=== PATIENT | female | born 1980 | race Caucasian/White ===

== ENCOUNTER 2019-01-26 18:55 | Emergency (ER) | payer SELFPAY ==
[2019-01-26 19:51] VITALS: BP 130/79; PULSE 88; RESP 18; TEMP 37; O2SAT 100; BMI 24.7
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
[2019-01-26 21:50] VITALS: BP 119/64; PULSE 76; RESP 18; O2SAT 99
== END 2019-01-26 22:06 | disposition home or self-care (01) ==
PROVIDERS: Emergency Provider Nurse Practitioner Family
DX: S09.90XA Unspecified injury of head, initial encounter (principal); S40.021A Contusion of right upper arm, initial encounter
CPT/HCPCS: 70450; 70486; 73060; 99282; 99285

== ENCOUNTER 2021-03-09 17:39 | Emergency (ER) | payer OTHER, MEDICAID, SELFPAY ==
[2021-03-09] VITALS (10 sets, daily range): BP systolic 109–131; BP diastolic 68–89; PULSE 80–94; RESP 14–30; TEMP 37; O2SAT 95–98; BMI 25.7
--- NOTE | 2021-03-09 18:19 | ED_ITS ---
HPI - General Adult General Chief complaint: Dizziness Stated complaint: lightheaded, muscle weakness Time Seen by Provider: 03/09/21 17:57 Source: patient Mode of arrival: Ambulatory Limitations: no limitations History of Present Illness HPI narrative: Patient is a 40-year-old female who is here for evaluation of m ultiple symptoms. She states that for the past 2 weeks she has had lightheadedness and fatigue in generally not feeling very well. Over the past couple days the symptoms seem to be worsening. She describes muscle cramping, foul-smelling urine. She also states she has had weight gain over the past couple months. No headaches. No chest pain. Has not tried anything for symptoms. She does not have a primary doctor so has not been evaluated up to this point. Related Data Previous Rx's Medication Instructions Recorded levothyroxine [Synthroid] 75 mcg PO DAILY #30 tab 03/09/21 nitrofurantoin monohyd/m-cryst 100 mg PO Q12H 5 Days #10 cap 03/09/21 [Macrobid] Allergies Allergy/AdvReac Type Severity Reaction Status Date / Time No Known Drug Allergies Allergy Verified 03/09/21 17:55 Review of Systems Constitutional Constitutional: Reports chills, Reports fatigue, Denies fever(s), Denies headache(s), Reports lethargy and Reports malaise Eyes Eyes: Denies change in vision ENT Ears, Nose, Mouth, and Throat: Denies vertigo, Denies dizziness, Denies headache(s) and Denies sore throat Cardiovascular Cardiovascular: Denies chest pain, Denies rapid heart rate, Denies irregular heart rhythm and Denies dyspnea Respiratory Respiratory: Denies cough and Denies dyspnea Gastrointestinal Gastrointestinal: Denies change in bowel habits Genitourinary Genitourinary: Reports urinary urgency Genitourinary: Reports urinary urgency Comments: Foul-smelling urine Musculoskeletal Musculoskeletal: Reports myalgias, Reports muscle cramps, Reports muscle weakness and Reports myalgias Integumentary/Breasts Skin/Breast: Denies rash Neurologic Neurologic: Denies confusion, Denies vertigo, Denies dizziness and Denies headache(s) Psychiatric Psychiatric: Denies confusion and Denies depression Endocrine Endocrine: Reports fatigue Hematologic/Lymphatic On Anticoagulants: No Allergic/Immunologic Allergic/Immunologic: Denies urticaria Patient History Medical History Healthy adult Social History Smoking Status: Current every day smoker Smoking Status: Current every day smoker alcohol intake frequency: 0-2 drinks per day Substance Use Type: marijuana Exam Initial Vital Signs Initial Vital Signs: Vital Signs Temperature 98.6 F 03/09/21 17:50 Pulse Rate 94 H 03/09/21 17:50 Respiratory Rate 14 03/09/21 17:50 Blood Pressure 131/76 03/09/21 17:50 Pulse Oximetry 98 03/09/21 17:50 Const General: cooperative, healthy appearing, comfortable and well developed Limitations: mental status not altered HENMT Head: normal to inspection and normocephalic Eyes General: appearance normal, both eyes and all related structures Resp Effort & Inspection: normal respiratory effort Auscultation: clear to auscultation bilaterally Cardio Rate: regular rate Rhythm: regular rhythm GI Inspection: non-distended Palpation: soft Skin Lesions: no lesions Rashes: no rashes Neuro General: patient alert, patient awake and patient oriented x3 Cognition: normal cognition Speech: speech normal Extrem General: normal to inspection and capillary refill normal Psych Appearance: grossly normal and well kempt Scores GCS [place] coma scale eye opening: Spontaneous Arianna coma scale verbal response: Orientated [place] coma scale motor response: Obey commands Arianna coma scale total score: 15 Course Orders Ordered: ED Orders 03/09/21 18:26 Complete Blood Count AUTO DIFF Stat Comprehensive Metabolic Panel Stat Ethanol (ETOH) Stat Free T3, Triiodothyronine Free Stat Free T4, Direct Thyroxine Stat Lipase Stat Magnesium Stat Phosphorous Stat Thyroid Stimulating Hormone Stat 03/09/21 20:12 Urine Culture Stat Urine Microscopic Stat Discontinued Medications Nitrofurantoin Macrocrystals (Nitrofurantoin Er 100 Mg Capsule) 100 mg PO NOW ONE Stop: 03/09/21 21:15 Last Admin: 03/09/21 21:20 Dose: 100 mg Documented by: MARIANNA Vital Signs Vital signs: Vital Signs - 8 hr 03/09/21 17:50 03/09/21 18:12 03/09/21 18:13 Temperature 98.6 F Pulse Rate 94 H 94 H 92 H Respiratory Rate 14 Blood Pressure 131/76 118/81 Pulse Oximetry 98 97 96 03/09/21 18:30 03/09/21 19:00 03/09/21 19:30 Temperature Pulse Rate 91 H 87 83 Respiratory Rate 14 17 16 Blood Pressure 109/69 109/73 112/68 Pulse Oximetry 97 95 97 03/09/21 19:58 03/09/21 20:00 03/09/21 20:30 Temperature Pulse Rate 88 90 84 Respiratory Rate 22 24 24 Blood Pressure 128/82 113/81 120/89 Pulse Oximetry 98 97 96 03/09/21 21:00 Temperature Pulse Rate 80 Respiratory Rate 30 H Blood Pressure 116/84 Pulse Oximetry 96 Medical Decision Making Lab Data Lab results reviewed: Yes I reviewed the patient's lab results. Result diagrams: 03/09/21 18:26 03/09/21 18:26 Labs: Lab Results 03/09/21 03/09/21 03/09/21 Range/Units 18:26 18:26 18:26 WBC 11.1 H (4.5-11.0) X10^3/uL RBC 4.47 (4.0-5.2) X10^6/uL Hgb 14.5 (12.0-16.0) g/dL Hct 41.9 (36-46) % MCV 93.9 (80-100) fL MCH 32.5 (26-34) PG MCHC 34.6 (30-36) % RDW 13.8 (11.6-14.8) % Plt Count 460 H (150-400) X10^3/uL Neut % (Auto) 66.7 (50-75) % Lymph % (Auto) 22.1 L (25-40) % [place] % (Auto) 7.8 (3-14) % Eos % (Auto) 2.6 (2-4) % Baso % (Auto) 0.8 (0-2) % Neut # (Auto) 7400 H (3041-7769) /uL Lymph # (Auto) 2400 (3497-2465) /uL [place] # (Auto) 900 (0-900) /uL Eos # (Auto) 300 (0-450) /uL Baso # (Auto) 100 (0-100) /uL Sodium 137 (137-145) mmol/L Potassium 3.8 (3.4-5.1) mmol/L Chloride 102 (98-107) mmol/L Carbon Dioxide 24 (22-32) mmol/L BUN 15 (7-17) mg/dL Creatinine 0.86 (0.52-1.04) mg/dL Estimated GFR > 60.0 (>60) mL/min BUN/Creatinine Ratio 17.4 (6-22) Glucose 94 (70-100) mg/dL Calcium 9.7 (8.4-10.2) mg/dL Phosphorus 4.0 (2.5-4.5) mg/dL Magnesium 2.2 (1.6-2.3) mg/dL Total Bilirubin 0.3 (0.2-1.3) mg/dL AST 41 H (14-36) IU/L ALT 37 H (<35) IU/L Alkaline Phosphatase 74 (38-126) U/L Total Protein 7.8 (6.3-8.2) g/dL Albumin 4.5 (3.5-5.0) g/dL Globulin 3.3 (1.7-4.1) g/dL Albumin/Globulin Ratio 1.4 (1.0-2.8) Lipase 74 (23-300) U/L TSH 59.8 H (0.47-4.68) uIU/mL Free T4 (0.78-2.19) ng/dL Free T3 (2.77-5.27) pg/mL Urine RBC (0-5/HPF) Urine WBC (0-5/HPF) Ur Squamous Epith Cells (0-5/HPF) Amorphous Sediment Urine Bacteria (None) Urine Mucus (Negative) Ur Culture Indicated? Ethyl Alcohol < 10 ( - 10) mg/dL 03/09/21 03/09/21 Range/Units 18:26 20:12 WBC (4.5-11.0) X10^3/uL RBC (4.0-5.2) X10^6/uL Hgb (12.0-16.0) g/dL Hct (36-46) % MCV (80-100) fL MCH (26-34) PG MCHC (30-36) % RDW (11.6-14.8) % Plt Count (150-400) X10^3/uL Neut % (Auto) (50-75) % Lymph % (Auto) (25-40) % [place] % (Auto) (3-14) % Eos % (Auto) (2-4) % Baso % (Auto) (0-2) % Neut # (Auto) (3714-2582) /uL Lymph # (Auto) (7662-9128) /uL [place]ow # (Auto) (0-900) /uL Eos # (Auto) (0-450) /uL Baso # (Auto) (0-100) /uL Sodium (137-145) mmol/L Potassium (3.4-5.1) mmol/L Chloride (98-107) mmol/L Carbon Dioxide (22-32) mmol/L BUN (7-17) mg/dL Creatinine (0.52-1.04) mg/dL Estimated GFR (>60) mL/min BUN/Creatinine Ratio (6-22) Glucose (70-100) mg/dL Calcium (8.4-10.2) mg/dL Phosphorus (2.5-4.5) mg/dL Magnesium (1.6-2.3) mg/dL Total Bilirubin (0.2-1.3) mg/dL AST (14-36) IU/L ALT (<35) IU/L Alkaline Phosphatase (38-126) U/L Total Protein (6.3-8.2) g/dL Albumin (3.5-5.0) g/dL Globulin (1.7-4.1) g/dL Albumin/Globulin Ratio (1.0-2.8) Lipase (23-300) U/L TSH (0.47-4.68) uIU/mL Free T4 0.26 L (0.78-2.19) ng/dL Free T3 3.15 (2.77-5.27) pg/mL Urine RBC None seen (0-5/HPF) Urine WBC 10-30/hpf H (0-5/HPF) Ur Squamous Epith Cells 1-5 /hpf (0-5/HPF) Amorphous Sediment 1+ Urine Bacteria Many (>30) H (None) Urine Mucus 1+ H (Negative) Ur Culture Indicated? Specimen cultured Ethyl Alcohol ( - 10) mg/dL Point of Care Testing Test Results Negative Urine Dip Bedside Urine Glucose Negative Bedside Urine Bilirubin - Negative Bedside Urine Ketone - Negative Urine Specific [place] 1.030 Bedside Urine Occult Blood - Negative Bedside Urine pH 6 Bedside Urine Protein - Negative Bedside Urine Urobilinogen - Negative Bedside Urine Nitrite + Positive Bedside Urine Leukocytes + 70 Esterase Point of care testing: Point of Care Testing Test Results Negative Urine Dip Bedside Urine Glucose Negative Bedside Urine Bilirubin - Negative Bedside Urine Ketone - Negative Urine Specific [place] 1.030 Bedside Urine Occult Blood - Negative Bedside Urine pH 6 Bedside Urine Protein - Negative Bedside Urine Urobilinogen - Negative Bedside Urine Nitrite + Positive Bedside Urine Leukocytes + 70 Esterase ECG Data Attestation: I personally reviewed and interpreted this ECG as follows: Prior ECG tracings: not available for review Interpretation: Sinus rhythm Normal axis Normal QRS Normal QTC Ventricular rate [address] T wave changes MDM Narrative Medical decision making narrative: Patient does have a nonfocal neurologic exam. Has a benign exam. Her urinalysis today is positive for nitrates and also has bacteria in her urine. Given her symptoms that she presents with this is consistent with a urinary tract infection. She was given 1st dose of antibiotics here in the ER and a prescription for the remainder course was electronically transmitted to the pharmacy of her choice. She does not have any signs of pyelonephritis. Has not been vomiting. Is afebrile. Is nontoxic. This could be the cause of many of her presenting symptoms today. Also during her workup it was found that her TSH was elevated. We then checked her free T4 and it was low. This is consistent with hypothyroidism. This also could explain many of her symptoms that she has been having over the past several weeks/months. She does not have a primary care doctor. I discussed with her starting on Synthroid and what this means. We did discuss that she needed to make contact with the primary doctor's this is a disease process that needs further surveillance. She was given a card with the phone number for the health resources coordinator. She expressed understanding of this. Patient is lean body mass is 100 lb. Her Synthroid was based on 1.6 Microg/kilogram using this weight. Will start her on 75 mcg. She was given return precautions with regard to the potentially having hyperthyroidism at this does. She expressed understanding and agreement with plan. Discharge Plan Departure Patient Disposition: Home Clinical Impression: Urinary tract infection, Hypothyroid Instructions: Hypothyroidism, DI for Urinary Tract Infection (UTI) Activity Restrictions/Additional Instructions: You were given your 1st dose of antibiotics here in the emergency department. A prescription for the remainder was electronically transmitted to [facility]. Your workup today also shows that you are hypothyroid. This means that your thyroid is not working as well as it should. We will start you on replacement medication. This was also sent to [facility]. It is important that you may contact with the primary doctor. You can call the number on the card that you were given. This numbers [phone]. This is the health resources coordinator. Return to the emergency department for any new or worsening symptoms Prescriptions: New nitrofurantoin monohyd/m-cryst [Macrobid] 100 mg capsule 100 mg PO Q12H 5 Days Qty: 10 RF: 0 levothyroxine [Synthroid] 75 mcg tablet 75 mcg PO DAILY Qty: 30 RF: 2
[2021-03-09 18:37] LABS: Add Manual Diff / Slide Review NO; Basophils Absolute Auto 100 /uL (0-100); Basophils Percent Auto 0.8 % (0-2); Eosinophils Absolute Auto 300 /uL (0-450); Eosinophils Percent Auto 2.6 % (2-4); Hematocrit 41.9 % (36-46); Hemoglobin 14.5 g/dL (12.0-16.0); Lymphocytes Absolute Auto 2400 /uL (1100-4500); Lymphocytes Percent Auto 22.1 % (25-40); Mean Corpuscular HGB Conc 34.6 % (30-36); Mean Corpuscular Hemoglobin 32.5 PG (26-34); Mean Corpuscular Volume 93.9 fL (80-100); Monocytes Absolute Auto 900 /uL (0-900); Monocytes Percent Auto 7.8 % (3-14); Neutrophils Absolute Auto 7400 /uL (1500-7000); Neutrophils Percent Auto 66.7 % (50-75); Platelet Count 460 X10^3/uL (150-400); Red Blood Cell Count 4.47 X10^6/uL (4.0-5.2); Red Cell Distribution Width 13.8 % (11.6-14.8); White Blood Cell Count 11.1 X10^3/uL (4.5-11.0)
[2021-03-09 18:49] LABS: Alanine Aminotransferase 37 IU/L (<35); Albumin 4.5 g/dL (3.5-5.0); Albumin Globulin Ratio 1.4 (1.0-2.8); Alkaline Phosphatase 74 U/L (38-126); Aspartate Aminotransferase 41 IU/L (14-36); BUN Creatinine Ratio 17.4 (6-22); Bilirubin Total 0.3 mg/dL (0.2-1.3); Blood Urea Nitrogen 15 mg/dL (7-17); Calcium 9.7 mg/dL (8.4-10.2); Carbon Dioxide 24 mmol/L (22-32); Chloride 102 mmol/L (98-107); Estimated Glomerular Filt Rate > 60.0 mL/min (>60); Ethanol (ETOH) < 10 mg/dL; Globulin 3.3 g/dL (1.7-4.1); Glucose 94 mg/dL (70-100); HEMOLYSIS < 15 (0-50); Lipase 74 U/L (23-300); Magnesium 2.2 mg/dL (1.6-2.3); Potassium 3.8 mmol/L (3.4-5.1); Sodium 137 mmol/L (137-145); Total Protein 7.8 g/dL (6.3-8.2)
--- NOTE | 2021-03-09 19:39 | PC.NURSE ---
Reports vision fuzzy x 3 days. Bilateral hand pain with griping/extending fingers. Also states my body feels heavy. I get tired really fast.
[2021-03-09 19:40] LABS: Thyroid Stimulating Hormone 59.8 uIU/mL (0.47-4.68)
[2021-03-09 20:14] LABS: RBC Urine None Seen (0-5/HPF)
[2021-03-09 20:26] LABS: Free T3, Triiodothyronine Free 3.15 pg/mL (2.77-5.27); Free T4, Direct Thyroxine 0.26 ng/dL (0.78-2.19)
[2021-03-09 20:37] LABS: Amorphous Sediment Urine 1+; Bacteria Urine Many (>30); Culture Indicated Urine Specimen Cultured; Mucus Urine 1+ (Negative); Squamous Epithelial Cell Urine 1-5 /HPF (0-5/HPF); WBC Urine 10-30/HPF (0-5/HPF)
[2021-03-09] MEDS: NITROFURANTOIN ER 100 MG CAPSULE PO (21:20)
== END 2021-03-09 21:23 | disposition home or self-care (01) ==
PROVIDERS: Emergency Provider Emergency Medicine
DX: N39.0 Urinary tract infection, site not specified (principal); E03.9 Hypothyroidism, unspecified
CPT/HCPCS: 36415; 80053; 80320; 81003; 81015; 81025; 83690; 83735; 84100; 84439; 84443; 84481; 85025; 87077; 87086; 87186; 93005; 93010; 99283; 99284

== ENCOUNTER 2023-08-17 06:32 | Emergency (ER) | payer OTHER, MEDICAID, SELFPAY ==
[2023-08-17] VITALS (45 sets, daily range): BP systolic 121–156; BP diastolic 81–93; PULSE 72–89; RESP 18; TEMP 36.6; O2SAT 94–99; BMI 25.7
--- NOTE | 2023-08-17 07:04 | DI.CT.S_ITS ---
PROCEDURE: CT SOFT TISSUE NECK W CON INDICATIONS: SIGNIFICANT L FACIAL SWELLING/DENTAL ABSCESS TECHNIQUE: After the administration of intravenous contrast, 3.0 mm axial sections acquired from the sella to the aortic arch. Additional oblique axial 3.0 mm sections acquired through the pharynx. 3 mm thick coronal and sagittal reformats were generated. For radiation dose reduction, the following was used: automated exposure control. COMPARISON: [facility], CT, SOFT TISSUE NECK W CONTRAST, 10/29/2008, 13:23. FINDINGS: Image quality: Excellent. Lymph nodes: Enlarged left cervical chain and left submandibular lymph nodes. Vessels: Visualized vasculature appears patent. Neck spaces: The oropharynx, nasopharynx, and pharynx demonstrate no mucosal lesions. The vocal cords, false vocal cords, epiglottis, vallecula, and tongue base all appear normal. Extramucosal spaces appear unremarkable. Glands: Left submandibular gland is enlarged, heterogeneously edematous, and mildly hyperemic. Prominent edema and enlargement of the caudal left medial pterygoid muscle. Mild edema and enlargement also involving the superficial left parotid gland. Mild fat stranding is seen deep to the parotid in the parapharyngeal space and superficially along the left muscles of mastication. Edema is effacing left piriform sinus. Mild leftward mass effect on the oropharynx. Miscellaneous: Visualized brain and orbits appear normal. Lung apices appear clear. Superficial soft tissues appear normal. Bones: Lucency surrounds several of the mandibular teeth and the posterior-most left maxillary tooth, though no visible bone abscess or adjacent fluid collection. No suspicious bony lesions. Moderate degenerative changes from C5 through C7, advanced for the patient's stated age. Visualized sinuses and mastoids appear unremarkable. IMPRESSION: 1. Prominent inflammation and edema involving the left medial pterygoid muscle and left submandibular gland. There is also reactive left neck and submandibular adenopathy. No stones are visible to suggest obstructive sialadenitis. No discrete fluid collection to indicate drainable abscess. Mild leftward displacement of oropharynx without visible peritonsillar abscess. Dictated by: Maria G Vasquez M.D. on 08/17/2023 at 8:31 Approved by: Maria G Vasquez M.D. on 08/17/2023 at 8:46
--- NOTE | 2023-08-17 07:28 | ED_ITS ---
HPI - Dental/Oral General Chief complaint: Dental/Oral Stated complaint: cant open mouth all the way left side swollen Time Seen by Provider: 08/17/23 06:54 Source: patient Mode of arrival: Ambulatory History of Present Illness HPI Narrative: 42-year-old female with history of hypothyroidism, hyperlipidemia, alcohol use disorder, tobacco abuse presents for severe L sided dental pain with facial swelling. Has had dental issues for quite some time, developed worsening pain and swelling 2 days ago. Today unable to fully open jaw due to pain. Able to swallow saliva and tolerate secretions. No recent antibiotic treatment for dental infection. Denies hx of head/neck surgery. Related Data Previous Rx's Medication Instructions Recorded levothyroxine 75 mcg tablet 75 mcg PO DAILY #30 tabs 03/09/21 (Synthroid) Allergies Allergy/AdvReac Type Severity Reaction Status Date / Time No Known Drug Allergies Allergy Verified 03/09/21 17:55 Review of Systems Review of Systems Narrative: CONSTITUTIONAL- Denies: fever, chills, fatigue HEENT- Reports: facial swelling, dental pain Denies: sore throat, nosebleed, vision changes RESPIRATORY- Denies: shortness of breath, cough, wheezing CARDIAC- Denies: chest pain, edema, orthopnea GI- Denies: abdominal pain, nausea, vomiting, constipation, diarrhea - Denies: frequency, dysuria, hematuria, flank pain MSK- Denies: extremity pain, extremity swelling, joint pain, joint swelling SKIN- Denies: rash, itching, burn, swelling NEUROLOGICAL- Denies: headache, numbness, weakness, dizziness PSYCHIATRIC- Denies: anxiety, depression, suicidal ideation, homicidal ideation Patient History Medical History Healthy adult Social History Smoking Status: Current every day smoker Smoking Status: Current every day smoker alcohol intake frequency: 0-2 drinks per day Substance Use Type: marijuana Exam Initial Vital Signs Initial Vital Signs: Vital Signs Pulse Oximetry 98 08/17/23 06:45 Const: Awake, alert, in pain, nontoxic appearing Eyes: PERRL, EOMI, conjunctiva normal ENT: Extensive poor dentition, mucous membranes moist, no pooling of secretions, no drooling, mild trismus, patient is able to open mouth 1 finger- width Cardiac: regular rate, regular rhythm RESP: unlabored, clear bilaterally, no wheezing GI: Atraumatic, soft, nontender, nondistended, no rebound, no guarding MSK: Atraumatic, full range of motion, pulses equal Skin: Warm, Dry, intact, no rashes Neuro: AO x3, CN II-XII grossly intact, moves all extremities Psych: affect normal, mood normal, not suicidal, not homicidal Course Course Course Narrative: Uncomfortable but nontoxic appearing patient with rapid evolving jaw swelling, presumably from dental infection. Mild trismus on exam, however patient's voice is normal, she is able to tolerate her secretions. We will order empiric Decadron and Unasyn, we will order laboratory work as well as CT imaging of the neck with contrast. Orders Ordered: Discontinued Medications Dexamethasone (Dexamethasone 10 Mg/Ml Vial) 10 mg IV NOW ONE Stop: 08/17/23 07:05 Last Admin: 08/17/23 07:36 Dose: 10 mg Documented By: KANDY Folic Acid (Folic Acid 1 Mg Tablet) 1 mg PO NOW ONE Stop: 08/17/23 07:06 Last Admin: 08/17/23 07:36 Dose: 1 mg Documented By: KANDY Ampicillin Sodium/Sulbactam (Sodium 3 gm/ Sodium Chloride) 100 mls @ 200 mls/hr IV NOW ONE Stop: 08/17/23 07:05 Last Infusion: 08/17/23 08:08 Dose: 0 mls/hr Documented By: Admin: 08/17/23 07:35 Dose: 200 mls/hr Documented By: KANDY Thiamine HCl 100 mg/ Sodium (Chloride) 101 mls @ 404 mls/hr IV NOW ONE Stop: 08/17/23 07:06 Last Infusion: 08/17/23 08:51 Dose: 0 mls/hr Documented By: Infusion: 08/17/23 08:35 Dose: 404 mls/hr Documented By: Infusion: 08/17/23 07:37 Dose: 0 mls/hr Documented By: Admin: 08/17/23 07:36 Dose: 404 mls/hr Documented By: KANDY Morphine Sulfate (Morphine 4 Mg/Ml Inj) 4 mg IV NOW ONE Stop: 08/17/23 07:06 Last Admin: 08/17/23 07:37 Dose: 4 mg Documented By: KANDY Morphine Sulfate (Morphine 4 Mg/Ml Inj) 4 mg IV NOW ONE Stop: 08/17/23 12:54 Last Admin: 08/17/23 13:03 Dose: 4 mg Documented By: SARAH Reevaluation(s) Reevaluation #1: Laboratory work is reviewed, significant for leukocytosis. Lactic acid 0.8. Liver enzymes mildly elevated, expected given that patient has history of alcohol use disorder. CT neck with contrast is concerning for edema and inflammation along the pterygoid muscle and submandibular regions. There is noted leftward deviation of the oropharynx, however no peritonsillar abscess. Patient is reassessed, pain is well controlled with IV medications, tolerating secretions, no evidence of airway compromise. Call placed to Dr. Burciaga of oral surgery Reevaluation #2: Call returned by Dr. Burciaga, who reviewed the images, and believes that there is a developing abscess. Unfortunately, however he is going to be out of town starting tomorrow, and he does not feel comfortable taking the patient to the operating room without any follow up. He recommended transfer to facility with ENT. Reevaluation #3: [facility] evaluated images, they believe that there is a developing abscess and accepted patient for transfer. At the time of transfer patient's airway was intact, she was tolerating secretions without any difficulty whatsoever, pain was well controlled. Consultations Consultation #1: Dr. Burciaga Consultation #2: ENT Vital Signs Vital signs: Vital Signs - 8 hr 08/17/23 10:45 08/17/23 11:00 08/17/23 11:00 Pulse Rate 79 78 Blood Pressure 143/93 H Pulse Oximetry 96 96 08/17/23 11:15 08/17/23 11:30 08/17/23 11:45 Pulse Rate 77 77 77 Blood Pressure Pulse Oximetry 94 95 95 08/17/23 12:00 08/17/23 12:00 08/17/23 12:15 Pulse Rate 77 78 Blood Pressure 141/90 H Pulse Oximetry 95 95 08/17/23 12:30 08/17/23 12:45 08/17/23 13:00 Pulse Rate 84 80 Blood Pressure 138/86 Pulse Oximetry 96 95 08/17/23 13:00 08/17/23 13:15 08/17/23 13:30 Pulse Rate 83 79 79 Blood Pressure Pulse Oximetry 96 94 94 08/17/23 14:07 08/17/23 14:07 08/17/23 14:15 Pulse Rate 81 80 Blood Pressure 121/87 Pulse Oximetry 96 96 08/17/23 14:30 08/17/23 14:45 08/17/23 15:00 Pulse Rate 81 80 Blood Pressure 143/81 H Pulse Oximetry 94 94 08/17/23 15:00 08/17/23 15:15 08/17/23 15:30 Pulse Rate 79 87 84 Blood Pressure Pulse Oximetry 94 95 95 08/17/23 15:45 08/17/23 16:00 08/17/23 16:05 Pulse Rate 87 89 Blood Pressure 136/87 Pulse Oximetry 95 96 08/17/23 16:05 08/17/23 16:15 08/17/23 16:30 Pulse Rate 83 79 85 Blood Pressure Pulse Oximetry 96 97 98 MDM - Dental/Oral Differential Diagnosis Differential diagnosis: Likely gingival abscess, dental caries and toothache Lab Data 08/17/23 07:26 08/17/23 07:26 Labs: Lab Results 08/17/23 08/17/23 08/17/23 Range/Units 07:26 07:26 07:26 WBC 16.9 H (4.5-11.0) X10^3/uL RBC 4.59 (4.0-5.2) X10^6/uL Hgb 13.9 (12.0-16.0) g/dL Hct 40.8 (36-46) % MCV 88.8 (80-100) fL MCH 30.2 (26-34) PG MCHC 34.0 (30-36) % RDW 13.2 (11.6-14.8) % Plt Count 406 H (150-400) X10^3/uL Neut % (Auto) 81.5 H (50-75) % Lymph % (Auto) 7.5 L (25-40) % Pender % (Auto) 9.9 (3-14) % Eos % (Auto) 0.7 L (2-4) % Baso % (Auto) 0.4 (0-2) % Neut # (Auto) 90065 H (4366-9864) /uL Lymph # (Auto) 1300 (6353-2024) /uL Pender # (Auto) 1700 H (0-900) /uL Eos # (Auto) 100 (0-450) /uL Baso # (Auto) 100 (0-100) /uL Sodium 136 L (137-145) mmol/L Potassium 3.8 (3.4-5.1) mmol/L Chloride 107 (98-107) mmol/L Carbon Dioxide 21 L (22-32) mmol/L BUN 11 (7-17) mg/dL Creatinine 0.61 (0.52-1.04) mg/dL Estimated GFR > 60 (>60) mL/min BUN/Creatinine Ratio 18.0 (6-22) Glucose 101 H (70-100) mg/dL Lactate 0.8 (0.7-2.1) mmol/L Calcium 9.1 (8.4-10.2) mg/dL Total Bilirubin 0.7 (0.2-1.3) mg/dL AST 45 H (14-36) IU/L ALT 49 H (<35) IU/L Alkaline Phosphatase 129 H (38-126) U/L Total Protein 7.5 (6.3-8.2) g/dL Albumin 4.1 (3.5-5.0) g/dL Globulin 3.4 (1.7-4.1) g/dL Albumin/Globulin Ratio 1.2 (1.0-2.8) Treatment and disposition Social Determinants of Health that impact treatment or disposition: Alcohol use disorder, tobacco abuse Critical Care Time Critical Care Time Critical Care Time: Yes Total Critical Care Time: 39 Attestation: Airway management, discussion with oral surgery, discussion with ENT, frequent reassessments, pain control Discharge Plan Departure Patient Disposition: [facility] Clinical Impression: Facial swelling, Dental caries, Continuous tobacco abuse, Alcohol use disorder Prescriptions: No Action levothyroxine [Synthroid] 75 mcg tablet 75 mcg PO DAILY Qty: 30 2RF
[2023-08-17 07:35] LABS: Add Manual Diff / Slide Review NO; Basophils Absolute Auto 100 /uL (0-100); Basophils Percent Auto 0.4 % (0-2); Eosinophils Absolute Auto 100 /uL (0-450); Eosinophils Percent Auto 0.7 % (2-4); Hematocrit 40.8 % (36-46); Hemoglobin 13.9 g/dL (12.0-16.0); Lymphocytes Absolute Auto 1300 /uL (1100-4500); Lymphocytes Percent Auto 7.5 % (25-40); Mean Corpuscular Hemoglobin 30.2 PG (26-34); Mean Corpuscular Volume 88.8 fL (80-100); Monocytes Absolute Auto 1700 /uL (0-900); Monocytes Percent Auto 9.9 % (3-14); Neutrophils Absolute Auto 13800 /uL (1500-7000); Neutrophils Percent Auto 81.5 % (50-75); Platelet Count 406 X10^3/uL (150-400); Red Blood Cell Count 4.59 X10^6/uL (4.0-5.2); Red Cell Distribution Width 13.2 % (11.6-14.8); White Blood Cell Count 16.9 X10^3/uL (4.5-11.0)
[2023-08-17] MEDS: AMPICILLIN/SULBACTAM 3 GM 3 GM in SODIUM CHLORIDE 0.9% 100 ML IV (07:35)
[2023-08-17] MEDS: DEXAMETHASONE 10 MG/ML VIAL IV (07:36)
[2023-08-17] MEDS: FOLIC ACID 1 MG TABLET PO (07:36)
[2023-08-17] MEDS: THIAMINE 100 MG in SODIUM CHLORIDE 0.9% 100 ML 404 MG IV (07:36)
[2023-08-17] MEDS: MORPHINE 4 MG/ML INJ IV ×2 (07:37→13:03)
[2023-08-17 07:48] LABS: Lactate (Lactic Acid) 0.8 mmol/L (0.7-2.1)
[2023-08-17 07:49] LABS: Alanine Aminotransferase 49 IU/L (<35); Albumin 4.1 g/dL (3.5-5.0); Albumin Globulin Ratio 1.2 (1.0-2.8); Alkaline Phosphatase 129 U/L (38-126); Aspartate Aminotransferase 45 IU/L (14-36); Bilirubin Total 0.7 mg/dL (0.2-1.3); Blood Urea Nitrogen 11 mg/dL (7-17); Calcium 9.1 mg/dL (8.4-10.2); Carbon Dioxide 21 mmol/L (22-32); Chloride 107 mmol/L (98-107); Estimated Glomerular Filt Rate > 60 mL/min (>60); Globulin 3.4 g/dL (1.7-4.1); Glucose 101 mg/dL (70-100); HEMOLYSIS < 15 (0-50); Potassium 3.8 mmol/L (3.4-5.1); Sodium 136 mmol/L (137-145); Total Protein 7.5 g/dL (6.3-8.2)
== END 2023-08-17 16:56 | disposition short-term general hospital (02) ==
PROVIDERS: Emergency Provider Emergency Medicine
DX: R22.0 Localized swelling, mass and lump, head (principal); K02.9 Dental caries, unspecified; Z72.0 Tobacco use; F10.90 Alcohol use, unspecified, uncomplicated
CPT/HCPCS: 70491; 80053; 83605; 85025; 96365; 96375; 96376; 99284; 99285; J0295; J1100; J2270

== ENCOUNTER 2024-12-02 17:07 | Inpatient (IN) | payer OTHER, SELFPAY ==
[2024-12-02] VITALS (14 sets, daily range): BP systolic 123–149; BP diastolic 79–108; PULSE 65–86; RESP 16–18; TEMP 36.7; O2SAT 98–100; BMI 24.2
--- NOTE | 2024-12-02 18:52 | ED.EXTPRO ---
HPI - Extremity Problem <Lita Lang Lou DO - Last Filed: 12/05/24 02:39> General Chief complaint: Extremity Problem,Nontraumatic Stated complaint: thinks blood clot, shakey, headache Time Seen by Provider: 12/02/24 18:52 Source: patient, RN notes reviewed and old records reviewed Mode of arrival: Family Vehicle Limitations: no limitations History of Present Illness HPI Narrative: 43-year-old female with a history of hypothyroidism and dyslipidemia patient comes in with complaint of what he describes as bilateral lower extremity discomfort and weakness but also describes all over her body pain. She describes headaches, pain in all of her extremities. States no fevers or chills. No chest pain or shortness of breath. She has had some nausea but no vomiting. She denies any issues such as diarrhea or constipation. No dysuria urgency or frequency. No incontinence. States she had increasing discomfort making it hard for her to walk. States sort of feels weak in her legs as well. States she has been falling. She states it has not episodes where she was passing out. Patient denies any trauma or injuries. States she has been taking Tylenol ibuprofen for discomfort. States home medications atorvastatin and levothyroxine. No known drug allergies. States she has had prior surgery for and ectopic removal. Does use tobacco daily. States drink some alcohol, uses marijuana denies other recreational drug. Related Data Home Medications Medication Instructions Recorded Confirmed atorvastatin 40 mg tablet 40 mg PO QPM 12/02/24 12/02/24 levothyroxine 150 mcg tablet 150 mcg PO DAILY 12/02/24 12/02/24 Allergies Allergy/AdvReac Type Severity Reaction Status Date / Time No Known Drug Allergies Allergy Verified 12/02/24 18:01 Review of Systems <Lita Lang Lou, DO - Last Filed: 12/05/24 02:39> Review of Systems ROS Unobtainable: All systems reviewed & are unremarkable except as noted in HPI and below Patient History <Lita Lou, DO - Last Filed: 12/05/24 02:39> Medical History (Updated 12/04/24 @ 13:00 by Cristiane Morrison MD) Hyperlipidemia Hypothyroid Alcohol abuse Methamphetamine abuse Healthy adult Surgical History (Updated 12/04/24 @ 12:44 by Cristiane Morrison MD) H/O section Family History (Updated 12/04/24 @ 13:00 by Cristiane Morrison MD) Father No problems noted. Mother No problems noted. Social History household members: significant other Smoking Status: Current every day smoker alcohol intake: current Smoking Status: Current every day smoker alcohol intake frequency: 0-2 drinks per day Exam <Lita Lou DO - Last Filed: 12/05/24 02:39> Narrative Exam Narrative: GEN: well nourished female, alert and oriented x 3, patient appears to be in mild distress. HEENT: Atraumatic, pupils are equal round reactive to light, extraocular movements are intact, nares are clear, there is no conjunctival pallor. Throat is clear without any exudates, erythema, tonsillar enlargement or uvular deviation, no facial droop HEART: Regular rate and rhythm without murmur, clicks, rubs. No carotid bruits, pulses are equal in upper and lower extremities. No Edema bilateral lower extremities no cyanosis, no pallor no erythema. LUNGS:Lungs clear to auscultation, no wheezes, rales, crackles, chest moves symmetrically ABD:bowel sounds normal, soft, non-tender, no guarding, rebound, rigidity, no masses noted, no hepatosplenomegaly :No CVA tenderness BACK: No cervical, thoracic or lumbar vertebral point tenderness. MSCL: Non-tender, no muscle atrophy, patient has range of motion of upper extremities. Patient has difficulty with dorsiflexion more ease with plantar flexion bilaterally. She was does seem to be a little bit weaker on the right compared to left although she was able to roll over on the and get on her side and on her back without any assistance. NEURO:CN 2-12 intact, sensation normal, reflexes 2/4 upper and lower extremities. SKIN: No rashes or skin changes appreciated. Initial Vital Signs Initial Vital Signs: Vital Signs Temperature 98.0 F 12/02/24 17:11 Pulse Rate 78 12/02/24 17:11 Respiratory Rate 16 12/02/24 17:11 Blood Pressure 123/79 12/02/24 17:11 Pulse Oximetry 99 12/02/24 17:11 Oxygen Delivery Method Room Air 12/02/24 17:11 <Ashley Suarez MD - Last Filed: 12/05/24 07:18> Initial Vital Signs Initial Vital Signs: Vital Signs Temperature 98.0 F 12/02/24 17:11 Pulse Rate 78 12/02/24 17:11 Respiratory Rate 16 12/02/24 17:11 Blood Pressure 123/79 12/02/24 17:11 Pulse Oximetry 99 12/02/24 17:11 Oxygen Delivery Method Room Air 12/02/24 17:11 <Eula Hendrickson DO - Last Filed: 12/04/24 18:41> Initial Vital Signs Initial Vital Signs: Vital Signs Temperature 98.0 F 12/02/24 17:11 Pulse Rate 78 12/02/24 17:11 Respiratory Rate 16 12/02/24 17:11 Blood Pressure 123/79 12/02/24 17:11 Pulse Oximetry 99 12/02/24 17:11 Oxygen Delivery Method Room Air 12/02/24 17:11 Procedures <Ashley Suarez MD - Last Filed: 12/05/24 07:18> Lumbar Puncture Time of procedure: 14:33 Patient Position: upright Skin Prep: Povidone-Iodine 1% Local Anesthetic: lidocaine 1% Amount of anesthesia used (mL): 3 Spinal Needle Gauge: 22G Interspace Used: L4-L5 Opening Pressure (cmH20): 60 (Pressure was high enough that it actually went out of the tube with the extension. Top of the tube measures 60 cm of water) Fluid Initially Obtained: clear Complications: none Course <Lita Lou DO - Last Filed: 12/05/24 02:39> Orders Ordered: Discontinued Medications Acetaminophen (Acetaminophen 325 Mg Tablet) 975 mg PO NOW ONE Stop: 12/02/24 19:05 Last Admin: 12/02/24 19:36 Dose: 975 mg Documented By: RADHA Acetaminophen (Acetaminophen 325 Mg Tablet) 975 mg PO Q8H PRN PRN Reason: Pain, Mild (1-3) Last Admin: 12/04/24 16:09 Dose: 975 mg Documented By: Admin: 12/04/24 08:50 Dose: 975 mg Documented By: Admin: 12/03/24 20:59 Dose: 975 mg Documented By: Admin: 12/03/24 02:24 Dose: 975 mg Documented By: RADHA Atorvastatin Calcium (Atorvastatin 20 Mg Tablet) 40 mg PO QPM [facility] Last Admin: 12/04/24 17:24 Dose: 40 mg Documented By: HANH Diazepam (Diazepam 5 Mg Tablet) 5 mg PO NOW ONE Stop: 12/03/24 09:10 Last Admin: 12/03/24 09:17 Dose: 5 mg Documented By: Enoxaparin Sodium (Enoxaparin 40 Mg/0.4 Ml Syringe) 40 mg SUBCUT DAILY [facility] Last Admin: 12/04/24 08:51 Dose: 40 mg Documented By: KATHY Enoxaparin Sodium (Enoxaparin 40 Mg/0.4 Ml Syringe) 40 mg SUBCUT DAILY [facility] Haloperidol (Haloperidol 5 Mg/Ml Vial) 5 mg IM NOW ONE Stop: 12/03/24 04:52 Last Admin: 12/03/24 04:54 Dose: 5 mg Documented By: RADHA Hydromorphone HCl (Hydromorphone 0.5 Mg Inj) 0.5 mg IV Q15MIN PRN PRN Reason: Pain, Last Admin: 12/03/24 22:28 Dose: 0.5 mg Documented By: Admin: 12/03/24 20:19 Dose: 0.5 mg Documented By: Admin: 12/03/24 12:56 Dose: 0.5 mg Documented By: Admin: 12/03/24 09:20 Dose: 0.5 mg Documented By: Sodium Chloride (Normal Saline 0.9%) 1,000 mls @ 1,000 mls/hr IV BOLUS ONE Stop: 12/02/24 20:03 Last Infusion: 12/02/24 20:54 Dose: Infused Documented By: Admin: 12/02/24 19:37 Dose: 1,000 mls/hr Documented By: RADHA Vancomycin HCl/Dextrose (Vancomycin) 1,500 mg in 300 mls @ 200 mls/hr IV NOW ONE Stop: 12/02/24 23:40 Last Infusion: 12/03/24 01:00 Dose: Infused Documented By: Admin: 12/02/24 23:19 Dose: 200 mls/hr Documented By: DESIREE Ceftriaxone Sodium 2,000 mg/ (Sodium Chloride) 100 mls @ 200 mls/hr IV NOW ONE Stop: 12/02/24 22:12 Last Infusion: 12/02/24 23:04 Dose: Infused Documented By: Admin: 12/02/24 22:31 Dose: 200 mls/hr Documented By: RADHA Sodium Chloride (Normal Saline 0.9%) 1,000 mls @ 150 mls/hr IV CONT ARTEM Last Infusion: 12/03/24 15:12 Dose: Infused Documented By: Admin: 12/03/24 05:20 Dose: 150 mls/hr Documented By: RADHA Acyclovir 800 mg/ Dextrose 250 mls @ 250 mls/hr IV Q8H [facility] Last Admin: 12/04/24 16:21 Dose: 250 mls/hr Documented By: Infusion: 12/04/24 10:25 Dose: Infused Documented By: Admin: 12/04/24 08:53 Dose: 250 mls/hr Documented By: Infusion: 12/04/24 03:18 Dose: Infused Documented By: Admin: 12/04/24 02:10 Dose: 250 mls/hr Documented By: Infusion: 12/03/24 18:18 Dose: Infused Documented By: Admin: 12/03/24 17:10 Dose: 250 mls/hr Documented By: Ceftriaxone Sodium 2,000 mg/ (Sodium Chloride) 100 mls @ 200 mls/hr IV BID ARTEM Last Infusion: 12/04/24 12:06 Dose: Infused Documented By: Admin: 12/04/24 10:37 Dose: 200 mls/hr Documented By: KATHY Vancomycin HCl (Vancomycin) 1,000 mg in 200 mls @ 200 mls/hr IV Q12H [facility] Last Admin: 12/04/24 06:53 Dose: Not Given Documented By: Vancomycin HCl 1,000 mg/ (Sodium Chloride) 250 mls @ 250 mls/hr IV NOW ONE Stop: 12/04/24 07:44 Last Infusion: 12/04/24 08:53 Dose: Infused Documented By: Admin: 12/04/24 07:29 Dose: 250 mls/hr Documented By: KATHY Vancomycin HCl (Vancomycin) 1,250 mg in 250 mls @ 250 mls/hr IV Q8H [facility] Sodium Chloride (Normal Saline 0.9%) 1,000 mls @ 70 mls/hr IV CONT ARTEM Last Admin: 12/04/24 12:55 Dose: 70 mls/hr Documented By: HANH Ketorolac Tromethamine (Ketorolac 30 Mg/Ml Vial) 15 mg IV NOW ONE Stop: 12/02/24 19:29 Last Admin: 12/02/24 19:41 Dose: 15 mg Documented By: RADHA Ketorolac Tromethamine (Ketorolac 30 Mg/Ml Vial) 15 mg IV Q6H PRN PRN Reason: Pain, Moderate (4-6) Stop: 12/08/24 01:39 Last Admin: 12/03/24 22:29 Dose: 15 mg Documented By: Admin: 12/03/24 01:41 Dose: 15 mg Documented By: RADHA Ketorolac Tromethamine (Ketorolac 30 Mg/Ml Vial) 15 mg IV NOW ONE Stop: 12/03/24 09:10 Last Admin: 12/03/24 09:17 Dose: 15 mg Documented By: Levothyroxine Sodium (Levothyroxine 75 Mcg Tablet) 150 mcg PO 0600 [facility] Lorazepam (Lorazepam 2 Mg/Ml Inj) 0.5 mg IV NOW ONE Stop: 12/02/24 20:26 Last Admin: 12/02/24 20:32 Dose: 0.5 mg Documented By: RADHA Lorazepam (Lorazepam 2 Mg/Ml Inj) 0.5 mg IV NOW ONE Stop: 12/03/24 06:14 Last Admin: 12/03/24 06:18 Dose: 0.5 mg Documented By: RADHA Morphine Sulfate (Morphine 4 Mg/Ml Inj) 4 mg IV NOW ONE Stop: 12/03/24 04:49 Last Admin: 12/03/24 04:57 Dose: Not Given Documented By: RADHA Morphine Sulfate (Morphine 4 Mg/Ml Inj) 4 mg IV NOW ONE Stop: 12/03/24 05:13 Last Admin: 12/03/24 05:15 Dose: 4 mg Documented By: RADHA Naloxone HCl (Naloxone 0.4 Mg/Ml Vial) 0.2 mg IV Q2MIN PRN PRN Reason: Opiate Reversal Naloxone HCl (Naloxone 0.4 Mg/Ml Vial) 0.2 mg IV Q2MIN PRN PRN Reason: Opiate Reversal Nitrofurantoin Macrocrystals (Nitrofurantoin Er 100 Mg Capsule) 100 mg PO BID [facility] Vancomycin HCl (Vancomycin Trough) 1 request MIS 1330 [facility] Stop: 12/05/24 13:31 Vancomycin HCl (Vancomycin Peak) 1 request MISC 1600 [facility] Stop: 12/05/24 16:01 Vital Signs Vital signs: Vital Signs - 8 hr 12/04/24 11:00 12/04/24 11:00 12/04/24 11:30 Pulse Rate 81 71 Respiratory Rate 17 18 Blood Pressure 111/61 Pulse Oximetry 97 98 Oxygen Delivery Method Room Air Room Air <Ashley Suarez MD - Last Filed: 12/05/24 07:18> Orders Ordered: Discontinued Medications Acetaminophen (Acetaminophen 325 Mg Tablet) 975 mg PO NOW ONE Stop: 12/02/24 19:05 Last Admin: 12/02/24 19:36 Dose: 975 mg Documented By: RADHA Acetaminophen (Acetaminophen 325 Mg Tablet) 975 mg PO Q8H PRN PRN Reason: Pain, Mild (1-3) Last Admin: 12/04/24 16:09 Dose: 975 mg Documented By: Admin: 12/04/24 08:50 Dose: 975 mg Documented By: Admin: 12/03/24 20:59 Dose: 975 mg Documented By: Admin: 12/03/24 02:24 Dose: 975 mg Documented By: RADHA Atorvastatin Calcium (Atorvastatin 20 Mg Tablet) 40 mg PO QPM [facility] Last Admin: 12/04/24 17:24 Dose: 40 mg Documented By: HANH Diazepam (Diazepam 5 Mg Tablet) 5 mg PO NOW ONE Stop: 12/03/24 09:10 Last Admin: 12/03/24 09:17 Dose: 5 mg Documented By: Enoxaparin Sodium (Enoxaparin 40 Mg/0.4 Ml Syringe) 40 mg SUBCUT DAILY [facility] Last Admin: 12/04/24 08:51 Dose: 40 mg Documented By: KATHY Enoxaparin Sodium (Enoxaparin 40 Mg/0.4 Ml Syringe) 40 mg SUBCUT DAILY [facility] Haloperidol (Haloperidol 5 Mg/Ml Vial) 5 mg IM NOW ONE Stop: 12/03/24 04:52 Last Admin: 12/03/24 04:54 Dose: 5 mg Documented By: RADHA Hydromorphone HCl (Hydromorphone 0.5 Mg Inj) 0.5 mg IV Q15MIN PRN PRN Reason: Pain, Last Admin: 12/03/24 22:28 Dose: 0.5 mg Documented By: Admin: 12/03/24 20:19 Dose: 0.5 mg Documented By: Admin: 12/03/24 12:56 Dose: 0.5 mg Documented By: Admin: 12/03/24 09:20 Dose: 0.5 mg Documented By: Sodium Chloride (Normal Saline 0.9%) 1,000 mls @ 1,000 mls/hr IV BOLUS ONE Stop: 12/02/24 20:03 Last Infusion: 12/02/24 20:54 Dose: Infused Documented By: Admin: 12/02/24 19:37 Dose: 1,000 mls/hr Documented By: RADHA Vancomycin HCl/Dextrose (Vancomycin) 1,500 mg in 300 mls @ 200 mls/hr IV NOW ONE Stop: 12/02/24 23:40 Last Infusion: 12/03/24 01:00 Dose: Infused Documented By: Admin: 12/02/24 23:19 Dose: 200 mls/hr Documented By: DESIREE Ceftriaxone Sodium 2,000 mg/ (Sodium Chloride) 100 mls @ 200 mls/hr IV NOW ONE Stop: 12/02/24 22:12 Last Infusion: 12/02/24 23:04 Dose: Infused Documented By: Admin: 12/02/24 22:31 Dose: 200 mls/hr Documented By: RADHA Sodium Chloride (Normal Saline 0.9%) 1,000 mls @ 150 mls/hr IV CONT ARTEM Last Infusion: 12/03/24 15:12 Dose: Infused Documented By: Admin: 12/03/24 05:20 Dose: 150 mls/hr Documented By: RADHA Acyclovir 800 mg/ Dextrose 250 mls @ 250 mls/hr IV Q8H [facility] Last Admin: 12/04/24 16:21 Dose: 250 mls/hr Documented By: Infusion: 12/04/24 10:25 Dose: Infused Documented By: Admin: 12/04/24 08:53 Dose: 250 mls/hr Documented By: Infusion: 12/04/24 03:18 Dose: Infused Documented By: Admin: 12/04/24 02:10 Dose: 250 mls/hr Documented By: Infusion: 12/03/24 18:18 Dose: Infused Documented By: Admin: 12/03/24 17:10 Dose: 250 mls/hr Documented By: Ceftriaxone Sodium 2,000 mg/ (Sodium Chloride) 100 mls @ 200 mls/hr IV BID ARTEM Last Infusion: 12/04/24 12:06 Dose: Infused Documented By: Admin: 12/04/24 10:37 Dose: 200 mls/hr Documented By: KATHY Vancomycin HCl (Vancomycin) 1,000 mg in 200 mls @ 200 mls/hr IV Q12H [facility] Last Admin: 12/04/24 06:53 Dose: Not Given Documented By: Vancomycin HCl 1,000 mg/ (Sodium Chloride) 250 mls @ 250 mls/hr IV NOW ONE Stop: 12/04/24 07:44 Last Infusion: 12/04/24 08:53 Dose: Infused Documented By: Admin: 12/04/24 07:29 Dose: 250 mls/hr Documented By: KATHY Vancomycin HCl (Vancomycin) 1,250 mg in 250 mls @ 250 mls/hr IV Q8H [facility] Sodium Chloride (Normal Saline 0.9%) 1,000 mls @ 70 mls/hr IV CONT [facility] Last Admin: 12/04/24 12:55 Dose: 70 mls/hr Documented By: HANH Ketorolac Tromethamine (Ketorolac 30 Mg/Ml Vial) 15 mg IV NOW ONE Stop: 12/02/24 19:29 Last Admin: 12/02/24 19:41 Dose: 15 mg Documented By: RADHA Ketorolac Tromethamine (Ketorolac 30 Mg/Ml Vial) 15 mg IV Q6H PRN PRN Reason: Pain, Moderate (4-6) Stop: 12/08/24 01:39 Last Admin: 12/03/24 22:29 Dose: 15 mg Documented By: Admin: 12/03/24 01:41 Dose: 15 mg Documented By: RADHA Ketorolac Tromethamine (Ketorolac 30 Mg/Ml Vial) 15 mg IV NOW ONE Stop: 12/03/24 09:10 Last Admin: 12/03/24 09:17 Dose: 15 mg Documented By: Levothyroxine Sodium (Levothyroxine 75 Mcg Tablet) 150 mcg PO 0600 [facility] Lorazepam (Lorazepam 2 Mg/Ml Inj) 0.5 mg IV NOW ONE Stop: 12/02/24 20:26 Last Admin: 12/02/24 20:32 Dose: 0.5 mg Documented By: RADHA Lorazepam (Lorazepam 2 Mg/Ml Inj) 0.5 mg IV NOW ONE Stop: 12/03/24 06:14 Last Admin: 12/03/24 06:18 Dose: 0.5 mg Documented By: RADHA Morphine Sulfate (Morphine 4 Mg/Ml Inj) 4 mg IV NOW ONE Stop: 12/03/24 04:49 Last Admin: 12/03/24 04:57 Dose: Not Given Documented By: RADHA Morphine Sulfate (Morphine 4 Mg/Ml Inj) 4 mg IV NOW ONE Stop: 12/03/24 05:13 Last Admin: 12/03/24 05:15 Dose: 4 mg Documented By: RADHA Naloxone HCl (Naloxone 0.4 Mg/Ml Vial) 0.2 mg IV Q2MIN PRN PRN Reason: Opiate Reversal Naloxone HCl (Naloxone 0.4 Mg/Ml Vial) 0.2 mg IV Q2MIN PRN PRN Reason: Opiate Reversal Nitrofurantoin Macrocrystals (Nitrofurantoin Er 100 Mg Capsule) 100 mg PO BID [facility] Vancomycin HCl (Vancomycin Trough) 1 request [facility] 1330 [facility] Stop: 12/05/24 13:31 Vancomycin HCl (Vancomycin Peak) 1 request [facility] 1600 [facility] Stop: 12/05/24 16:01 Vital Signs Vital signs: Vital Signs - 8 hr 12/04/24 11:00 12/04/24 11:00 12/04/24 11:30 Pulse Rate 81 71 Respiratory Rate 17 18 Blood Pressure 111/61 Pulse Oximetry 97 98 Oxygen Delivery Method Room Air Room Air <Eula Hendrickson, - Last Filed: 12/04/24 18:41> Orders Ordered: Discontinued Medications Acetaminophen (Acetaminophen 325 Mg Tablet) 975 mg PO NOW ONE Stop: 12/02/24 19:05 Last Admin: 12/02/24 19:36 Dose: 975 mg Documented By: RADHA Acetaminophen (Acetaminophen 325 Mg Tablet) 975 mg PO Q8H PRN PRN Reason: Pain, Mild (1-3) Last Admin: 12/04/24 16:09 Dose: 975 mg Documented By: Admin: 12/04/24 08:50 Dose: 975 mg Documented By: Admin: 12/03/24 20:59 Dose: 975 mg Documented By: Admin: 12/03/24 02:24 Dose: 975 mg Documented By: RADHA Atorvastatin Calcium (Atorvastatin 20 Mg Tablet) 40 mg PO QPM [facility] Last Admin: 12/04/24 17:24 Dose: 40 mg Documented By: HANH Diazepam (Diazepam 5 Mg Tablet) 5 mg PO NOW ONE Stop: 12/03/24 09:10 Last Admin: 12/03/24 09:17 Dose: 5 mg Documented By: Enoxaparin Sodium (Enoxaparin 40 Mg/0.4 Ml Syringe) 40 mg SUBCUT DAILY [facility] Last Admin: 12/04/24 08:51 Dose: 40 mg Documented By: KATHY Enoxaparin Sodium (Enoxaparin 40 Mg/0.4 Ml Syringe) 40 mg SUBCUT DAILY [facility] Haloperidol (Haloperidol 5 Mg/Ml Vial) 5 mg IM NOW ONE Stop: 12/03/24 04:52 Last Admin: 12/03/24 04:54 Dose: 5 mg Documented By: RADHA Hydromorphone HCl (Hydromorphone 0.5 Mg Inj) 0.5 mg IV Q15MIN PRN PRN Reason: Pain, Last Admin: 12/03/24 22:28 Dose: 0.5 mg Documented By: Admin: 12/03/24 20:19 Dose: 0.5 mg Documented By: Admin: 12/03/24 12:56 Dose: 0.5 mg Documented By: Admin: 12/03/24 09:20 Dose: 0.5 mg Documented By: Sodium Chloride (Normal Saline 0.9%) 1,000 mls @ 1,000 mls/hr IV BOLUS ONE Stop: 12/02/24 20:03 Last Infusion: 12/02/24 20:54 Dose: Infused Documented By: Admin: 12/02/24 19:37 Dose: 1,000 mls/hr Documented By: RADHA Vancomycin HCl/Dextrose (Vancomycin) 1,500 mg in 300 mls @ 200 mls/hr IV NOW ONE Stop: 12/02/24 23:40 Last Infusion: 12/03/24 01:00 Dose: Infused Documented By: Admin: 12/02/24 23:19 Dose: 200 mls/hr Documented By: DESIREE Ceftriaxone Sodium 2,000 mg/ (Sodium Chloride) 100 mls @ 200 mls/hr IV NOW ONE Stop: 12/02/24 22:12 Last Infusion: 12/02/24 23:04 Dose: Infused Documented By: Admin: 12/02/24 22:31 Dose: 200 mls/hr Documented By: RADHA Sodium Chloride (Normal Saline 0.9%) 1,000 mls @ 150 mls/hr IV CONT ARTEM Last Infusion: 12/03/24 15:12 Dose: Infused Documented By: Admin: 12/03/24 05:20 Dose: 150 mls/hr Documented By: RADHA Acyclovir 800 mg/ Dextrose 250 mls @ 250 mls/hr IV Q8H [facility] Last Admin: 12/04/24 16:21 Dose: 250 mls/hr Documented By: Infusion: 12/04/24 10:25 Dose: Infused Documented By: Admin: 12/04/24 08:53 Dose: 250 mls/hr Documented By: Infusion: 12/04/24 03:18 Dose: Infused Documented By: Admin: 12/04/24 02:10 Dose: 250 mls/hr Documented By: Infusion: 12/03/24 18:18 Dose: Infused Documented By: Admin: 12/03/24 17:10 Dose: 250 mls/hr Documented By: Ceftriaxone Sodium 2,000 mg/ (Sodium Chloride) 100 mls @ 200 mls/hr IV BID [facility] Last Infusion: 12/04/24 12:06 Dose: Infused Documented By: Admin: 12/04/24 10:37 Dose: 200 mls/hr Documented By: KATHY Vancomycin HCl (Vancomycin) 1,000 mg in 200 mls @ 200 mls/hr IV Q12H [facility] Last Admin: 12/04/24 06:53 Dose: Not Given Documented By: Vancomycin HCl 1,000 mg/ (Sodium Chloride) 250 mls @ 250 mls/hr IV NOW ONE Stop: 12/04/24 07:44 Last Infusion: 12/04/24 08:53 Dose: Infused Documented By: Admin: 12/04/24 07:29 Dose: 250 mls/hr Documented By: KATHY Vancomycin HCl (Vancomycin) 1,250 mg in 250 mls @ 250 mls/hr IV Q8H [facility] Sodium Chloride (Normal Saline 0.9%) 1,000 mls @ 70 mls/hr IV CONT [facility] Last Admin: 12/04/24 12:55 Dose: 70 mls/hr Documented By: HANH Ketorolac Tromethamine (Ketorolac 30 Mg/Ml Vial) 15 mg IV NOW ONE Stop: 12/02/24 19:29 Last Admin: 12/02/24 19:41 Dose: 15 mg Documented By: RADHA Ketorolac Tromethamine (Ketorolac 30 Mg/Ml Vial) 15 mg IV Q6H PRN PRN Reason: Pain, Moderate (4-6) Stop: 12/08/24 01:39 Last Admin: 12/03/24 22:29 Dose: 15 mg Documented By: Admin: 12/03/24 01:41 Dose: 15 mg Documented By: RADHA Ketorolac Tromethamine (Ketorolac 30 Mg/Ml Vial) 15 mg IV NOW ONE Stop: 12/03/24 09:10 Last Admin: 12/03/24 09:17 Dose: 15 mg Documented By: Levothyroxine Sodium (Levothyroxine 75 Mcg Tablet) 150 mcg PO 0600 [facility] Lorazepam (Lorazepam 2 Mg/Ml Inj) 0.5 mg IV NOW ONE Stop: 12/02/24 20:26 Last Admin: 12/02/24 20:32 Dose: 0.5 mg Documented By: RADHA Lorazepam (Lorazepam 2 Mg/Ml Inj) 0.5 mg IV NOW ONE Stop: 12/03/24 06:14 Last Admin: 12/03/24 06:18 Dose: 0.5 mg Documented By: RADHA Morphine Sulfate (Morphine 4 Mg/Ml Inj) 4 mg IV NOW ONE Stop: 12/03/24 04:49 Last Admin: 12/03/24 04:57 Dose: Not Given Documented By: RADHA Morphine Sulfate (Morphine 4 Mg/Ml Inj) 4 mg IV NOW ONE Stop: 12/03/24 05:13 Last Admin: 12/03/24 05:15 Dose: 4 mg Documented By: RADHA Naloxone HCl (Naloxone 0.4 Mg/Ml Vial) 0.2 mg IV Q2MIN PRN PRN Reason: Opiate Reversal Naloxone HCl (Naloxone 0.4 Mg/Ml Vial) 0.2 mg IV Q2MIN PRN PRN Reason: Opiate Reversal Nitrofurantoin Macrocrystals (Nitrofurantoin Er 100 Mg Capsule) 100 mg PO BID [facility] Vancomycin HCl (Vancomycin Trough) 1 request MISC 1330 [facility] Stop: 12/05/24 13:31 Vancomycin HCl (Vancomycin Peak) 1 request MISC 1600 [facility] Stop: 12/05/24 16:01 Vital Signs Vital signs: Vital Signs - 8 hr 12/04/24 11:00 12/04/24 11:00 12/04/24 11:30 Pulse Rate 81 71 Respiratory Rate 17 18 Blood Pressure 111/61 Pulse Oximetry 97 98 Oxygen Delivery Method Room Air Room Air MDM - Extremity (Nontraumatic) <Lita Lou, DO - Last Filed: 12/05/24 02:39> Lab Data 12/04/24 08:22 12/04/24 08:22 Labs: Lab Results 12/02/24 12/02/24 12/02/24 Range/Units 19:30 23:16 23:16 WBC 12.9 H (4.5-11.0) X10^3/uL RBC 4.96 (4.0-5.2) X10^6/uL Hgb 15.6 (12.0-16.0) g/dL Hct 45.4 (36-46) % MCV 91.5 (80-100) fL MCH 31.4 (26-34) PG MCHC 34.3 (30-36) % RDW 13.9 (11.6-14.8) % Plt Count 483 H (150-400) X10^3/uL Neut % (Auto) 89.6 H (50-75) % Lymph % (Auto) 6.1 L (25-40) % [place] % (Auto) 4.1 (3-14) % Eos % (Auto) 0.0 L (2-4) % Baso % (Auto) 0.2 (0-2) % Neut # (Auto) 67358 H (2070-5706) /uL Lymph # (Auto) 800 L (2597-2785) /uL [place] # (Auto) 500 (0-900) /uL Eos # (Auto) 0 (0-450) /uL Baso # (Auto) 0 (0-100) /uL ESR 21 H (0-20) MM/HR D-Dimer 477 (<500) ng/ml Sodium 136 L (137-145) mmol/L Potassium 4.0 (3.4-5.1) mmol/L Chloride 102 (98-107) mmol/L Carbon Dioxide 23 (22-32) mmol/L BUN 14 (7-17) mg/dL Creatinine 0.60 (0.52-1.04) mg/dL Estimated GFR > 60 (>60) mL/min BUN/Creatinine Ratio 23.3 H (6-22) Glucose 119 H (70-100) mg/dL Lactate 1.1 (0.7-2.1) mmol/L Calcium 9.8 (8.4-10.2) mg/dL Total Bilirubin 0.4 (0.2-1.3) mg/dL AST 50 H (14-36) IU/L ALT 59 H (<35) IU/L Alkaline Phosphatase 110 (38-126) U/L Total Creatine Kinase 74 (30-135) U/L C-Reactive Protein 15.9 H (<1.0) mg/dL Total Protein 8.8 H (6.3-8.2) g/dL Albumin 4.9 (3.5-5.0) g/dL Globulin 3.9 (1.7-4.1) g/dL Albumin/Globulin Ratio 1.3 (1.0-2.8) Lipase 39 (23-300) U/L Procalcitonin 0.551 H (<0.5) ng/mL TSH 3.30 (0.47-4.68) uIU/mL Serum , Qual Negative (Negative) Urine Color Yellow Urine Appearance Clear Urine pH 5.5 Normal (4.5-8.0) Ur Specific [place] 1.025 (1.000-1.035) Urine Protein Negative (Negative) Urine Glucose (UA) Negative (Negative) g/dL Urine Ketones 2+ H (NEGATIVE) Urine Occult Blood Negative (Negative) Urine Nitrate Positive H (Negative) Urine Bilirubin 1+ H (NEGATIVE) Ur Bilirubin Confirm Negative (Negative) Urine Urobilinogen 0.2 (0.2) E.U./dL Ur Leukocyte Esterase Negative (NEGATIVE) Urine RBC None seen (0-5/HPF) Urine WBC 0-1/hpf (0-5/HPF) Ur Squamous Epith Cells 0-1 /hpf (0-5/HPF) Urine Bacteria Many (>30) H (None) Ur Culture Indicated? Specimen cultured Vol Urine Centrifuged 10ml (spun) CSF Tube Number CSF Volume CSF Appearance (Clear) CSF Color (Colorless) CSF WBC (0-5) MONO/uL CSF RBC RBC /uL CSF Mononuclear WBCs % CSF Polynuclear WBCs % CSF Glucose (40-70) mg/dL CSF Total Protein (12-60) mg/dL CSF C.neoform/gat PCR (Not Detect) CSF CMV DNA (PCR) (Not Detect) CSF Enterovirus (PCR) (Not Detect) CSF E. coli (PCR) (Not Detect) CSF H. influenzae (PCR) (Not Detect) CSF HSV I (PCR) (Not Detect) CSF HSV II (PCR) (Not Detect) CSF HHV 6 (PCR) (Not Detect) CSF L.monocytogenes PCR (Not Detect) CSF N. meningitidis PCR (Not Detect) CSF Parechovirus (PCR) (Not Detect) CSF S. agalactiae (PCR) (Not Detect) CSF S. pneumoniae (PCR) (Not Detect) CSF VZV (PCR) (Not Detecte) U Opiates 300ng/mL cut Negative (Negative) Ur Oxycodone Screen Negative (Negative) Urine Methadone Screen Negative (Negative) Ur Barbiturates Screen Negative (Negative) U Tricyclic Antidepress Negative (Negative) Ur Phencyclidine Scrn Negative (Negative) Ur Amphetamines Screen Positive H (Negative) U Methamphetamines Scrn Positive H (Negative) Ur MDMA Scrn (Ecstasy) Positive H (Negative) U Benzodiazepines Scrn Negative (Negative) Urine Cocaine Screen Negative (Negative) U Marijuana (THC) Screen Positive H (Negative) Urine Specific [place] Normal (Normal) Ur Creatinine Normal (Normal) RPR w/Rflx to Titer (Non Reactive) SARS-CoV-2 (PCR) Negative (Negative) Influenza A (RT-PCR) Flu a negative (NEGATIVE) Influenza B (RT-PCR) Flu b negative (NEGATIVE) RSV (PCR) Negative (Negative) 12/03/24 12/03/24 12/03/24 Range/Units 05:17 14:25 14:28 WBC 10.0 (4.5-11.0) X10^3/uL RBC 4.55 (4.0-5.2) X10^6/uL Hgb 14.1 (12.0-16.0) g/dL Hct 41.4 (36-46) % MCV 90.9 (80-100) fL MCH 30.9 (26-34) PG MCHC 34.0 (30-36) % RDW 13.7 (11.6-14.8) % Plt Count 420 H (150-400) X10^3/uL Neut % (Auto) 84.0 H (50-75) % Lymph % (Auto) 9.0 L (25-40) % [place] % (Auto) 6.5 (3-14) % Eos % (Auto) 0.1 L (2-4) % Baso % (Auto) 0.4 (0-2) % Neut # (Auto) 8400 H (2449-7826) /uL Lymph # (Auto) 900 L (1584-6855) /uL [place] # (Auto) 700 (0-900) /uL Eos # (Auto) 0 (0-450) /uL Baso # (Auto) 0 (0-100) /uL ESR (0-20) MM/HR D-Dimer (<500) ng/ml Sodium 131 L (137-145) mmol/L Potassium 3.6 (3.4-5.1) mmol/L Chloride 104 (98-107) mmol/L Carbon Dioxide 18 L (22-32) mmol/L BUN 10 (7-17) mg/dL Creatinine 0.57 (0.52-1.04) mg/dL Estimated GFR > 60 (>60) mL/min BUN/Creatinine Ratio 17.5 (6-22) Glucose 132 H (70-100) mg/dL Lactate 1.0 (0.7-2.1) mmol/L Calcium 8.8 (8.4-10.2) mg/dL Total Bilirubin 0.4 (0.2-1.3) mg/dL AST 46 H (14-36) IU/L ALT 49 H (<35) IU/L Alkaline Phosphatase 114 (38-126) U/L Total Creatine Kinase (30-135) U/L C-Reactive Protein (<1.0) mg/dL Total Protein 7.2 (6.3-8.2) g/dL Albumin 4.1 (3.5-5.0) g/dL Globulin 3.1 (1.7-4.1) g/dL Albumin/Globulin Ratio 1.3 (1.0-2.8) Lipase (23-300) U/L Procalcitonin 0.434 (<0.5) ng/mL TSH (0.47-4.68) uIU/mL Serum , Qual (Negative) Urine Color Urine Appearance Urine pH (4.5-8.0) Ur Specific Ralston (1.000-1.035) Urine Protein (Negative) Urine Glucose (UA) (Negative) g/dL Urine Ketones (NEGATIVE) Urine Occult Blood (Negative) Urine Nitrate (Negative) Urine Bilirubin (NEGATIVE) Ur Bilirubin Confirm (Negative) Urine Urobilinogen (0.2) E.U./dL Ur Leukocyte Esterase (NEGATIVE) Urine RBC (0-5/HPF) Urine WBC (0-5/HPF) Ur Squamous Epith Cells (0-5/HPF) Urine Bacteria (None) Ur Culture Indicated? Vol Urine Centrifuged CSF Tube Number 3 CSF Volume 1.25 ml CSF Appearance Clear (Clear) CSF Color Colorless (Colorless) CSF WBC 245 H (0-5) MONO/uL CSF RBC 622 RBC /uL CSF Mononuclear WBCs 91 % CSF Polynuclear WBCs 9 % CSF Glucose 33 L (40-70) mg/dL CSF Total Protein 250 H* (12-60) mg/dL CSF C.neoform/gat PCR Not detected (Not Detect) CSF CMV DNA (PCR) Not detected (Not Detect) CSF Enterovirus (PCR) Not detected (Not Detect) CSF E. coli (PCR) Not detected (Not Detect) CSF H. influenzae (PCR) Not detected (Not Detect) CSF HSV I (PCR) Not detected (Not Detect) CSF HSV II (PCR) Detected (Not Detect) CSF HHV 6 (PCR) Not detected (Not Detect) CSF L.monocytogenes PCR Not detected (Not Detect) CSF N. meningitidis PCR Not detected (Not Detect) CSF Parechovirus (PCR) Not detected (Not Detect) CSF S. agalactiae (PCR) Not detected (Not Detect) CSF S. pneumoniae (PCR) Not detected (Not Detect) CSF VZV (PCR) Not detected (Not Detecte) U Opiates 300ng/mL cut (Negative) Ur Oxycodone Screen (Negative) Urine Methadone Screen (Negative) Ur Barbiturates Screen (Negative) U Tricyclic Antidepress (Negative) Ur Phencyclidine Scrn (Negative) Ur Amphetamines Screen (Negative) U Methamphetamines Scrn (Negative) Ur MDMA Scrn (Ecstasy) (Negative) U Benzodiazepines Scrn (Negative) Urine Cocaine Screen (Negative) U Marijuana (THC) Screen (Negative) Urine Specific Ral[place] (Normal) Ur Creatinine (Normal) RPR w/Rflx to Titer (Non Reactive) SARS-CoV-2 (PCR) (Negative) Influenza A (RT-PCR) (NEGATIVE) Influenza B (RT-PCR) (NEGATIVE) RSV (PCR) (Negative) 12/03/24 12/04/24 Range/Units 16:35 08:22 WBC 8.9 (4.5-11.0) X10^3/uL RBC 4.53 (4.0-5.2) X10^6/uL Hgb 14.0 (12.0-16.0) g/dL Hct 40.8 (36-46) % MCV 90.1 (80-100) fL MCH 30.9 (26-34) PG MCHC 34.3 (30-36) % RDW 13.7 (11.6-14.8) % Plt Count 450 H (150-400) X10^3/uL Neut % (Auto) 56.4 D (50-75) % Lymph % (Auto) 24.2 L (25-40) % [place] % (Auto) 18.5 H (3-14) % Eos % (Auto) 0.4 L (2-4) % Baso % (Auto) 0.5 (0-2) % Neut # (Auto) 5000 (2095-2434) /uL Lymph # (Auto) 2200 (8573-4239) /uL [place] # (Auto) 1700 H (0-900) /uL Eos # (Auto) 0 (0-450) /uL Baso # (Auto) 0 (0-100) /uL ESR (0-20) MM/HR D-Dimer (<500) ng/ml Sodium 132 L (137-145) mmol/L Potassium 3.7 (3.4-5.1) mmol/L Chloride 103 (98-107) mmol/L Carbon Dioxide 25 (22-32) mmol/L BUN 12 (7-17) mg/dL Creatinine 0.67 (0.52-1.04) mg/dL Estimated GFR > 60 (>60) mL/min BUN/Creatinine Ratio 17.9 (6-22) Glucose 104 H (70-100) mg/dL Lactate (0.7-2.1) mmol/L Calcium 8.5 (8.4-10.2) mg/dL Total Bilirubin 0.2 (0.2-1.3) mg/dL AST 38 H (14-36) IU/L ALT 36 H (<35) IU/L Alkaline Phosphatase 90 (38-126) U/L Total Creatine Kinase (30-135) U/L C-Reactive Protein (<1.0) mg/dL Total Protein 6.6 (6.3-8.2) g/dL Albumin 3.6 (3.5-5.0) g/dL Globulin 3.0 (1.7-4.1) g/dL Albumin/Globulin Ratio 1.2 (1.0-2.8) Lipase (23-300) U/L Procalcitonin (<0.5) ng/mL TSH (0.47-4.68) uIU/mL Serum , Qual (Negative) Urine Color Urine Appearance Urine pH (4.5-8.0) Ur Specific R[place] (1.000-1.035) Urine Protein (Negative) Urine Glucose (UA) (Negative) g/dL Urine Ketones (NEGATIVE) Urine Occult Blood (Negative) Urine Nitrate (Negative) Urine Bilirubin (NEGATIVE) Ur Bilirubin Confirm (Negative) Urine Urobilinogen (0.2) E.U./dL Ur Leukocyte Esterase (NEGATIVE) Urine RBC (0-5/HPF) Urine WBC (0-5/HPF) Ur Squamous Epith Cells (0-5/HPF) Urine Bacteria (None) Ur Culture Indicated? Vol Urine Centrifuged CSF Tube Number CSF Volume CSF Appearance (Clear) CSF Color (Colorless) CSF WBC (0-5) MONO/uL CSF RBC RBC /uL CSF Mononuclear WBCs % CSF Polynuclear WBCs % CSF Glucose (40-70) mg/dL CSF Total Protein (12-60) mg/dL CSF C.neoform/gat PCR (Not Detect) CSF CMV DNA (PCR) (Not Detect) CSF Enterovirus (PCR) (Not Detect) CSF E. coli (PCR) (Not Detect) CSF H. influenzae (PCR) (Not Detect) CSF HSV I (PCR) (Not Detect) CSF HSV II (PCR) (Not Detect) CSF HHV 6 (PCR) (Not Detect) CSF L.monocytogenes PCR (Not Detect) CSF N. meningitidis PCR (Not Detect) CSF Parechovirus (PCR) (Not Detect) CSF S. agalactiae (PCR) (Not Detect) CSF S. pneumoniae (PCR) (Not Detect) CSF VZV (PCR) (Not Detecte) U Opiates 300ng/mL cut (Negative) Ur Oxycodone Screen (Negative) Urine Methadone Screen (Negative) Ur Barbiturates Screen (Negative) U Tricyclic Antidepress (Negative) Ur Phencyclidine Scrn (Negative) Ur Amphetamines Screen (Negative) U Methamphetamines Scrn (Negative) Ur MDMA Scrn (Ecstasy) (Negative) U Benzodiazepines Scrn (Negative) Urine Cocaine Screen (Negative) U Marijuana (THC) Screen (Negative) Urine Specific Ral[place] (Normal) Ur Creatinine (Normal) RPR w/Rflx to Titer Non reactive (Non Reactive) SARS-CoV-2 (PCR) (Negative) Influenza A (RT-PCR) (NEGATIVE) Influenza B (RT-PCR) (NEGATIVE) RSV (PCR) (Negative) Point of Care Testing Glucose POC [address]: Radiologist's Impression: Jessica Ortez??43??F??1980 ? Allergy/Adv: No Known Drug Allergies Close Lumbar Spine CT (Signed) Earnest Roberson - 12/02/[address] (Signed) Earnest Roberson - 12/02/[address] (Signed) Maria G Vasquez - 08/17/23 Humerus X-Ray (Signed) Ze Awad - 01/26/[address] (Signed) [place] - 01/26/[address] (Signed) Ze Awad - 01/26/19 [place] [id number] CT Scan Report Signed Patient: Jessica Ortez MR#: [id number] : 1980 Acct:[id number] Age/Sex: 43 / F Date of Service: 12/02/24 Loc: ED Accession Number: [id number] Procedure: CT lumbar spine w con Ordering Provider: Lita Lou D.O. PROCEDURE: CT LUMBAR SPINE W CON INDICATIONS: legs hurt, weakness TECHNIQUE: After the administration of intravenous Isovue contrast, 3 mm thick sections acquired through the levels of interest. Sagittal and coronal reformats were then constructed. For radiation dose reduction, the following was used: automated exposure control. COMPARISON: None. FINDINGS: Image quality: Diagnostic Bones: Vertebral body heights are well maintained. No high-grade degenerative changes. No traumatic subluxation. No displaced fracture. Bpls-[id number]-[id number] L4-L5 facet arthropathy, greater on the right. Mild facet arthropathy seen elsewhere the lumbar spine. Partially sacralized S1 Soft tissues: No abdominal aortic aneurysm. Mild nonspecific distal esophageal wall thickening. No paravertebral fluid collections. On limited CT assessment, suspected disc protrusions and bulges are seen at L3-L4 and L4-L5 resulting in at least mild thecal sac narrowing. Mild bulges are seen elsewhere. Moderate neural foraminal narrowing is seen at the right L1-L2 neural foramen and moderate to severe neural foraminal narrowing seen at the right L3-L4 neural foramen. Mild and [id number]-vdzhllox areas of neural foraminal narrowing seen elsewhere in the mid and lower lumbar spine. Mild thecal sac narrowing seen L3-L4 and L4-L5 IMPRESSION: No acute fracture. Disc disease at multiple levels in the lumbar spine with neural foraminal and thecal sac narrowing, particularly at L3-L4, as described above. This could be better assessed on MRI if clinically indicated. No definite paravertebral abscess identified The epidural region is better assessed on MRI, no significant abnormality seen on CT. Suspected transitional anatomy with partial sacralization of L5. Dictated by: Earnest Roberson M.D. on 12/02/2024 at 21:32 Approved by: Earnest Roberson M.D. on 12/02/2024 at 21:38 CT scan - head: Radiologist's Impression: [place] [address] CT Scan Report Signed Patient: Jessica Ortez MR#: [id number] : 1980 Acct:[id number] Age/Sex: 43 / F Date of Service: 12/02/24 Loc: ED Accession Number: [id number] Procedure: CT head/brain wo con Ordering Provider: Lita Lou D.O. PROCEDURE: CT HEAD/BRAIN WO CON INDICATIONS: jimenez/ hurts all over/leg pain/weakness TECHNIQUE: Noncontrast 4.5 mm thick angled axial sections acquired from the foramen magnum to the vertex, with coronal and sagittal reformats. For radiation dose reduction, the following was used: automated exposure control, adjustment of mA and/or kV according to patient size. COMPARISON: None. FINDINGS: Image quality: Diagnostic CSF spaces: Basal cisterns are patent. Lateral ventricles are symmetric. Volume: Generally maintained. Brain: No acute intracranial hematoma. No gross loss of hay-white differentiation. Craniofacial structures: No significant paranasal sinus opacity. IMPRESSION: No acute intracranial pathology. If there is high concern for parenchymal pathology, consider further evaluation with MRI. Dictated by: Earnest Roberson M.D. on 12/02/2024 at 21:30 Approved by: Earnest Roberson M.D. on 12/02/2024 at 21:31 ECG Data Attestation EKG: I personally reviewed and interpreted this ECG as follows: Prior ECG tracings: available for review Interpretation: Sinus rhythm rate of 72 CT 186 QRS is 78 QTC of 468, no acute ST elevation left axis deviation. Nonspecific change. MDM Narrative Medical decision making narrative: [age] old female presents with complaint of headaches generalized muscle aches and feeling shaky patient does seem to be little bit weaker in her legs on exam although in when on assisted able to roll over and body without much issue. On exam patient is not able to dorsiflex can sort of plantar flex she can lift her legs but definitely has a weakness right compared to left. Decreased DTRs. Rectal stones in place. Patient has urinary retention Landrum catheter was ultimately placed she would over 500 mL in her bladder. No point tenderness on exam but with her history my suspicion is higher for epidural abscess. Labs show white count 12.9 hemoglobin of 15 platelets of 483 ESR elevated at 21. Sodium is 136 electrolytes are otherwise appropriate glucose is 119 lactate 1.1 calcium is 9.8 AST ALT are 1559 with a total bilirubin 0.4 and alk-phos of 110 reactive protein is elevated 15.9 procalcitonin is 0.551 with a TSH of 3.3 and a qualitative that is negative. Dimer was 477. Procalcitonin 0.551 with a TSH of 3.3 and a serum which is negative. Blood cultures were obtained and sent. COVID/influenza/RSV is negative EKG sinus rhythm left axis deviation Imaging head CT shows no acute change, spine with contrast shows multilevel lumbar spine with neural foraminal thecal sac narrowing particularly L3-L4 no definite paravertebral abscess identified epidural region better assessed on MRI no significant abnormality on CT suspect transitional anatomy with partial sacralization of L5. UA he was nitrate positive, positive for ketones. Micro UDS is positive for amphetamines, methamphetamines MDMA and marijuana. Still of concern for potential epidural abscess infection patient was covered with vancomycin and Rocephin I do not have MRI capabilities at this time. They are unavailable til the morning. Patient had bladder scan as 550mL, she has a sensation that she needs to urinate. Unable to urinate in the department and landrum catheter was placed. Call to transfer patient as do not have neurosurgery or spinal surgery available at our facility. Patient is agreeable to transfer as needed. [address] Ureña neurosurgery. from [facility] spinal surgery reviewed patient's images suspect there maybe lesion elsewhere asked if we can obtain imaging of the cervical thoracic and lumbar spine MR with and without contrast with the plan for admission to hospitalist. Did discuss patient likely needs evaluation with additional specialties I do not have available here regardless of MR results. [address] [facility] asked if we can obtain MRI and call back with the results. Asked that we also add brain well as cervical, thoracic lumbar spine with and without contrast based on Dr. Horvath recommendations. Accepted pending MR results. 0450 Patient had pulled out line, complaining of headache. She is not febrile on check, glucose is 121. Labs were repeated, white count 10 hemoglobin is 14.1 platelets are 420. Sodium is 131 CO2 is 18 glucose is 132 creatinine 0.57 repeat lactate 1 AST is 46 with a ALT of 49 bilirubin 0.4 alk-phos of 114 procalcitonin 0.434 Calls out to multiple facilities. no beds available currently. 0554 [facility]: Spoke with coordinator. [address]Spoke with Dr. Dickens neurosurgery, ask if we can obtain MR results and callback. He did review imaging. If unable to get MR today or not in a timely manner to callback for ED to ED transfer. MR locke should be present at 0700. Patient signed out to Dr. Suarez while awaiting MR. 7am Dr. Suarez. Care is assumed MRI of true portions of her body able to be performed today at 10:30 a.m.. Opted to begin with lumbar and sacral areas. She was given oral diazepam to help with claustrophobia. MRIs return and show very little acute abnormality. There was no evidence of abscess or hematoma. She does have various disc bulging and central canal stenosis without abnormal enhancement of the spinal cord. Patient is re-examined. Her lower extremities are both still significantly weak. In asking her to sit up she needed help in sitting. In asking her to move her legs to the side of the bed, she use her arms, core strength to lift her legs to the edge of the bed. Does not describe significant decreased sensation in the lower extremities at this time. Not experiencing significant pain. We did try standing and legs bilaterally completely collapsed. She was able to get back in bed and again with upper abdominal and core strength she was able to move significantly. She used both hands to lift her legs back onto the bed. She is hyporeflexic and has toes slightly downgoing with Babinski testing. She does not have a headache, no meningismus signs. Patient is currently sleeping and resting comfortably. I suspect she has not had significant sleep for a number of days secondary to methamphetamine use as well as pain. Images have been pushed to [facility] in [place]. Awaiting call back to help with disposition. Next imaging studies of the cervical spine and brain could be obtained as early as 230 this afternoon. 145pm received a call back from the [facility] skin transfer center. Apparently the neurosurgeon was able to look at the images from the thoracic and lumbar spine MR did not see anything significant interest and felt the patient did not need to be transferred. I did let him know that the cervical spine and head are going to be done at 2:30 a.m. this afternoon and ask what recommendations he might have for this woman who can no longer stand up with mostly lower motor neuron signs now no suggestion of spinal or lumbar epidural abscess with MRI suggesting no acute cord injury at those levels. Will consider futher workup for for myelopathy with LP while waiting for MRI studies. LP results: Significant opening pressure, actually went out of the tube, greater than 60 cm of water. Clear fluid. 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 Negative for CMV, enterovirus, E coli, H influenza, HSV 1, HSV 6, listeria, Neisseria, parechovirus, strep agalactiae , strep pneumoniae, CSF VZV Discussion with Infectious Disease,Dr Massey. Recommended b.i.d. vancomycin, ceftriaxone, ampicillin to cover listeria if there was an alcohol history. There is an alcohol history however listeria is negative on the CSF PCR. 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 Massey. We will add acyclovir in meningitis/encephalitis doses. Pharmacy consultation to explain the dramatic doses. Now with a more definitive diagnosis, will see if hospital beds might be available closer to home. [facility] has a long waiting list, [facility] is not accepting any transfers until SundayDecember 08. Spoke with the [facility] transfer center and they will call back. I am expecting a call back from the neurosurgeon at [facility] in [place] [address] Sands,[place] [facility]. Agrees that current management seems appropriate, given the weakness likely will benefit from Infectious Disease as well as neurologic and patient consultation. We will talk to the hospital at [facility] to see if they are willing to accept and if beds are available [address] Causey [facility] in [place]. He felt that antibiotics and antivirals would be appropriate, see how the neurologic findings resolve. Did not think that inpatient Neurology would be required. Certainly neurosurgical consultation is not required at this point. With bed highly likely to be available at some point at [facility] we will cancel the transfer request to [facility] [address] Jacome, Hospitalist [facility]. Recommends Neuro Isolation Bed. Transfer center will enter into bed planning and will call back to confirm transfer 12/03/2024 Dr. Lou: Patient signed back out to myself. Reviewed patient has a acyclovir order regularly as per Dr. Suarez and her note they do recommend continuing antibiotics currently these were added back. Repeat labs were ordered for the morning. Patient had no events overnight. Patient is alert, appropriate and appears much improved from when I saw her on the prior shift. Patient signed out to Dr. Hendrickson while awaiting transfer. 12/04/24 Dr. Hendrickson- patient signed out to me by Dr. Lou. Patient currently sleeping. 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 Had MRI entire neurologic system without evidence of abscess or other neurologic emergency. Multiple places have been called in regards to transfer waiting for bed availability. Currently continuing HSV treatment with acyclovir it antibiotics. Blood work overall showing improvement DVT prophalaxisis 0920 patient is awake alert she is able to move her legs but right leg quickly falls to the gurney along with left left leg does seem a little bit stronger. She does report some improvement. We have recalled all places and beds. [facility] reports that as long as MRIs are negative there is no need to transfer. All other places are boarding in beyond capacity Dr. Morrison updated on patient's symptoms test results in happy to accept <Ashley Suarez MD - Last Filed: 12/05/24 07:18> Lab Data Labs: Lab Results 12/02/24 12/02/24 12/02/24 Range/Units 19:30 23:16 23:16 WBC 12.9 H (4.5-11.0) X10^3/uL RBC 4.96 (4.0-5.2) X10^6/uL Hgb 15.6 (12.0-16.0) g/dL Hct 45.4 (36-46) % MCV 91.5 (80-100) fL MCH 31.4 (26-34) PG MCHC 34.3 (30-36) % RDW 13.9 (11.6-14.8) % Plt Count 483 H (150-400) X10^3/uL Neut % (Auto) 89.6 H (50-75) % Lymph % (Auto) 6.1 L (25-40) % [place] % (Auto) 4.1 (3-14) % Eos % (Auto) 0.0 L (2-4) % Baso % (Auto) 0.2 (0-2) % Neut # (Auto) 20646 H (8808-1755) /uL Lymph # (Auto) 800 L (8515-3820) /uL [place] # (Auto) 500 (0-900) /uL Eos # (Auto) 0 (0-450) /uL Baso # (Auto) 0 (0-100) /uL ESR 21 H (0-20) MM/HR D-Dimer 477 (<500) ng/ml Sodium 136 L (137-145) mmol/L Potassium 4.0 (3.4-5.1) mmol/L Chloride 102 (98-107) mmol/L Carbon Dioxide 23 (22-32) mmol/L BUN 14 (7-17) mg/dL Creatinine 0.60 (0.52-1.04) mg/dL Estimated GFR > 60 (>60) mL/min BUN/Creatinine Ratio 23.3 H (6-22) Glucose 119 H (70-100) mg/dL Lactate 1.1 (0.7-2.1) mmol/L Calcium 9.8 (8.4-10.2) mg/dL Total Bilirubin 0.4 (0.2-1.3) mg/dL AST 50 H (14-36) IU/L ALT 59 H (<35) IU/L Alkaline Phosphatase 110 (38-126) U/L Total Creatine Kinase 74 (30-135) U/L C-Reactive Protein 15.9 H (<1.0) mg/dL Total Protein 8.8 H (6.3-8.2) g/dL Albumin 4.9 (3.5-5.0) g/dL Globulin 3.9 (1.7-4.1) g/dL Albumin/Globulin Ratio 1.3 (1.0-2.8) Lipase 39 (23-300) U/L Procalcitonin 0.551 H (<0.5) ng/mL TSH 3.30 (0.47-4.68) uIU/mL Serum , Qual Negative (Negative) Urine Color Yellow Urine Appearance Clear Urine pH 5.5 Normal (4.5-8.0) Ur Specific Ralston 1.025 (1.000-1.035) Urine Protein Negative (Negative) Urine Glucose (UA) Negative (Negative) g/dL Urine Ketones 2+ H (NEGATIVE) Urine Occult Blood Negative (Negative) Urine Nitrate Positive H (Negative) Urine Bilirubin 1+ H (NEGATIVE) Ur Bilirubin Confirm Negative (Negative) Urine Urobilinogen 0.2 (0.2) E.U./dL Ur Leukocyte Esterase Negative (NEGATIVE) Urine RBC None seen (0-5/HPF) Urine WBC 0-1/hpf (0-5/HPF) Ur Squamous Epith Cells 0-1 /hpf (0-5/HPF) Urine Bacteria Many (>30) H (None) Ur Culture Indicated? Specimen cultured Vol Urine Centrifuged 10ml (spun) CSF Tube Number CSF Volume CSF Appearance (Clear) CSF Color (Colorless) CSF WBC (0-5) MONO/uL CSF RBC RBC /uL CSF Mononuclear WBCs % CSF Polynuclear WBCs % CSF Glucose (40-70) mg/dL CSF Total Protein (12-60) mg/dL CSF C.neoform/gat PCR (Not Detect) CSF CMV DNA (PCR) (Not Detect) CSF Enterovirus (PCR) (Not Detect) CSF E. coli (PCR) (Not Detect) CSF H. influenzae (PCR) (Not Detect) CSF HSV I (PCR) (Not Detect) CSF HSV II (PCR) (Not Detect) CSF HHV 6 (PCR) (Not Detect) CSF L.monocytogenes PCR (Not Detect) CSF N. meningitidis PCR (Not Detect) CSF Parechovirus (PCR) (Not Detect) CSF S. agalactiae (PCR) (Not Detect) CSF S. pneumoniae (PCR) (Not Detect) CSF VZV (PCR) (Not Detecte) U Opiates 300ng/mL cut Negative (Negative) Ur Oxycodone Screen Negative (Negative) Urine Methadone Screen Negative (Negative) Ur Barbiturates Screen Negative (Negative) U Tricyclic Antidepress Negative (Negative) Ur Phencyclidine Scrn Negative (Negative) Ur Amphetamines Screen Positive H (Negative) U Methamphetamines Scrn Positive H (Negative) Ur MDMA Scrn (Ecstasy) Positive H (Negative) U Benzodiazepines Scrn Negative (Negative) Urine Cocaine Screen Negative (Negative) U Marijuana (THC) Screen Positive H (Negative) Urine Specific [place] Normal (Normal) Ur Creatinine Normal (Normal) RPR w/Rflx to Titer (Non Reactive) SARS-CoV-2 (PCR) Negative (Negative) Influenza A (RT-PCR) Flu a negative (NEGATIVE) Influenza B (RT-PCR) Flu b negative (NEGATIVE) RSV (PCR) Negative (Negative) 12/03/24 12/03/24 12/03/24 Range/Units 05:17 14:25 14:28 WBC 10.0 (4.5-11.0) X10^3/uL RBC 4.55 (4.0-5.2) X10^6/uL Hgb 14.1 (12.0-16.0) g/dL Hct 41.4 (36-46) % MCV 90.9 (80-100) fL MCH 30.9 (26-34) PG MCHC 34.0 (30-36) % RDW 13.7 (11.6-14.8) % Plt Count 420 H (150-400) X10^3/uL Neut % (Auto) 84.0 H (50-75) % Lymph % (Auto) 9.0 L (25-40) % [place] % (Auto) 6.5 (3-14) % Eos % (Auto) 0.1 L (2-4) % Baso % (Auto) 0.4 (0-2) % Neut # (Auto) 8400 H (0662-6513) /uL Lymph # (Auto) 900 L (5204-3519) /uL [place] # (Auto) 700 (0-900) /uL Eos # (Auto) 0 (0-450) /uL Baso # (Auto) 0 (0-100) /uL ESR (0-20) MM/HR D-Dimer (<500) ng/ml Sodium 131 L (137-145) mmol/L Potassium 3.6 (3.4-5.1) mmol/L Chloride 104 (98-107) mmol/L Carbon Dioxide 18 L (22-32) mmol/L BUN 10 (7-17) mg/dL Creatinine 0.57 (0.52-1.04) mg/dL Estimated GFR > 60 (>60) mL/min BUN/Creatinine Ratio 17.5 (6-22) Glucose 132 H (70-100) mg/dL Lactate 1.0 (0.7-2.1) mmol/L Calcium 8.8 (8.4-10.2) mg/dL Total Bilirubin 0.4 (0.2-1.3) mg/dL AST 46 H (14-36) IU/L ALT 49 H (<35) IU/L Alkaline Phosphatase 114 (38-126) U/L Total Creatine Kinase (30-135) U/L C-Reactive Protein (<1.0) mg/dL Total Protein 7.2 (6.3-8.2) g/dL Albumin 4.1 (3.5-5.0) g/dL Globulin 3.1 (1.7-4.1) g/dL Albumin/Globulin Ratio 1.3 (1.0-2.8) Lipase (23-300) U/L Procalcitonin 0.434 (<0.5) ng/mL TSH (0.47-4.68) uIU/mL Serum , Qual (Negative) Urine Color Urine Appearance Urine pH (4.5-8.0) Ur Specific R[place] (1.000-1.035) Urine Protein (Negative) Urine Glucose (UA) (Negative) g/dL Urine Ketones (NEGATIVE) Urine Occult Blood (Negative) Urine Nitrate (Negative) Urine Bilirubin (NEGATIVE) Ur Bilirubin Confirm (Negative) Urine Urobilinogen (0.2) E.U./dL Ur Leukocyte Esterase (NEGATIVE) Urine RBC (0-5/HPF) Urine WBC (0-5/HPF) Ur Squamous Epith Cells (0-5/HPF) Urine Bacteria (None) Ur Culture Indicated? Vol Urine Centrifuged CSF Tube Number 3 CSF Volume 1.25 ml CSF Appearance Clear (Clear) CSF Color Colorless (Colorless) CSF WBC 245 H (0-5) MONO/uL CSF RBC 622 RBC /uL CSF Mononuclear WBCs 91 % CSF Polynuclear WBCs 9 % CSF Glucose 33 L (40-70) mg/dL CSF Total Protein 250 H* (12-60) mg/dL CSF C.neoform/gat PCR Not detected (Not Detect) CSF CMV DNA (PCR) Not detected (Not Detect) CSF Enterovirus (PCR) Not detected (Not Detect) CSF E. coli (PCR) Not detected (Not Detect) CSF H. influenzae (PCR) Not detected (Not Detect) CSF HSV I (PCR) Not detected (Not Detect) CSF HSV II (PCR) Detected (Not Detect) CSF HHV 6 (PCR) Not detected (Not Detect) CSF L.monocytogenes PCR Not detected (Not Detect) CSF N. meningitidis PCR Not detected (Not Detect) CSF Parechovirus (PCR) Not detected (Not Detect) CSF S. agalactiae (PCR) Not detected (Not Detect) CSF S. pneumoniae (PCR) Not detected (Not Detect) CSF VZV (PCR) Not detected (Not Detecte) U Opiates 300ng/mL cut (Negative) Ur Oxycodone Screen (Negative) Urine Methadone Screen (Negative) Ur Barbiturates Screen (Negative) U Tricyclic Antidepress (Negative) Ur Phencyclidine Scrn (Negative) Ur Amphetamines Screen (Negative) U Methamphetamines Scrn (Negative) Ur MDMA Scrn (Ecstasy) (Negative) U Benzodiazepines Scrn (Negative) Urine Cocaine Screen (Negative) U Marijuana (THC) Screen (Negative) Urine Specific R[place] (Normal) Ur Creatinine (Normal) RPR w/Rflx to Titer (Non Reactive) SARS-CoV-2 (PCR) (Negative) Influenza A (RT-PCR) (NEGATIVE) Influenza B (RT-PCR) (NEGATIVE) RSV (PCR) (Negative) 12/03/24 12/04/24 Range/Units 16:35 08:22 WBC 8.9 (4.5-11.0) X10^3/uL RBC 4.53 (4.0-5.2) X10^6/uL Hgb 14.0 (12.0-16.0) g/dL Hct 40.8 (36-46) % MCV 90.1 (80-100) fL MCH 30.9 (26-34) PG MCHC 34.3 (30-36) % RDW 13.7 (11.6-14.8) % Plt Count 450 H (150-400) X10^3/uL Neut % (Auto) 56.4 D (50-75) % Lymph % (Auto) 24.2 L (25-40) % [place] % (Auto) 18.5 H (3-14) % Eos % (Auto) 0.4 L (2-4) % Baso % (Auto) 0.5 (0-2) % Neut # (Auto) 5000 (4784-6610) /uL Lymph # (Auto) 2200 (9269-8353) /uL [place] # (Auto) 1700 H (0-900) /uL Eos # (Auto) 0 (0-450) /uL Baso # (Auto) 0 (0-100) /uL ESR (0-20) MM/HR D-Dimer (<500) ng/ml Sodium 132 L (137-145) mmol/L Potassium 3.7 (3.4-5.1) mmol/L Chloride 103 (98-107) mmol/L Carbon Dioxide 25 (22-32) mmol/L BUN 12 (7-17) mg/dL Creatinine 0.67 (0.52-1.04) mg/dL Estimated GFR > 60 (>60) mL/min BUN/Creatinine Ratio 17.9 (6-22) Glucose 104 H (70-100) mg/dL Lactate (0.7-2.1) mmol/L Calcium 8.5 (8.4-10.2) mg/dL Total Bilirubin 0.2 (0.2-1.3) mg/dL AST 38 H (14-36) IU/L ALT 36 H (<35) IU/L Alkaline Phosphatase 90 (38-126) U/L Total Creatine Kinase (30-135) U/L C-Reactive Protein (<1.0) mg/dL Total Protein 6.6 (6.3-8.2) g/dL Albumin 3.6 (3.5-5.0) g/dL Globulin 3.0 (1.7-4.1) g/dL Albumin/Globulin Ratio 1.2 (1.0-2.8) Lipase (23-300) U/L Procalcitonin (<0.5) ng/mL TSH (0.47-4.68) uIU/mL Serum , Qual (Negative) Urine Color Urine Appearance Urine pH (4.5-8.0) Ur Specific [place] (1.000-1.035) Urine Protein (Negative) Urine Glucose (UA) (Negative) g/dL Urine Ketones (NEGATIVE) Urine Occult Blood (Negative) Urine Nitrate (Negative) Urine Bilirubin (NEGATIVE) Ur Bilirubin Confirm (Negative) Urine Urobilinogen (0.2) E.U./dL Ur Leukocyte Esterase (NEGATIVE) Urine RBC (0-5/HPF) Urine WBC (0-5/HPF) Ur Squamous Epith Cells (0-5/HPF) Urine Bacteria (None) Ur Culture Indicated? Vol Urine Centrifuged CSF Tube Number CSF Volume CSF Appearance (Clear) CSF Color (Colorless) CSF WBC (0-5) MONO/uL CSF RBC RBC /uL CSF Mononuclear WBCs % CSF Polynuclear WBCs % CSF Glucose (40-70) mg/dL CSF Total Protein (12-60) mg/dL CSF C.neoform/gat PCR (Not Detect) CSF CMV DNA (PCR) (Not Detect) CSF Enterovirus (PCR) (Not Detect) CSF E. coli (PCR) (Not Detect) CSF H. influenzae (PCR) (Not Detect) CSF HSV I (PCR) (Not Detect) CSF HSV II (PCR) (Not Detect) CSF HHV 6 (PCR) (Not Detect) CSF L.monocytogenes PCR (Not Detect) CSF N. meningitidis PCR (Not Detect) CSF Parechovirus (PCR) (Not Detect) CSF S. agalactiae (PCR) (Not Detect) CSF S. pneumoniae (PCR) (Not Detect) CSF VZV (PCR) (Not Detecte) U Opiates 300ng/mL cut (Negative) Ur Oxycodone Screen (Negative) Urine Methadone Screen (Negative) Ur Barbiturates Screen (Negative) U Tricyclic Antidepress (Negative) Ur Phencyclidine Scrn (Negative) Ur Amphetamines Screen (Negative) U Methamphetamines Scrn (Negative) Ur MDMA Scrn (Ecstasy) (Negative) U Benzodiazepines Scrn (Negative) Urine Cocaine Screen (Negative) U Marijuana (THC) Screen (Negative) Urine Specific [place] (Normal) Ur Creatinine (Normal) RPR w/Rflx to Titer Non reactive (Non Reactive) SARS-CoV-2 (PCR) (Negative) Influenza A (RT-PCR) (NEGATIVE) Influenza B (RT-PCR) (NEGATIVE) RSV (PCR) (Negative) Point of Care Testing Glucose POC 121 Imaging Data MRI thoracic spine: Radiologist's Impression: PROCEDURE: MR THORACIC SPINE WO/W CON INDICATIONS: r/o epidural abscess vs other, leg weakness, urinary retenti TECHNIQUE: Noncontrast sagittal T1 spin echo and T2 fast spin echo, sagittal STIR, axial T1 and T2 fast spin echo through the thoracic spine. After the administration of contrast, axial and sagittal T1 spin echo with fat saturation through the thoracic spine. COMPARISON: None. FINDINGS: Image quality: Excellent. Alignment and curvature: There is normal bony alignment. Marrow: Marrow is of normal overall signal. No acute vertebral body compression fractures. No area of abnormal intraosseous enhancement. Spinal cord: Visualized spinal cord is of normal signal and size, without abnormal enhancement. Paraspinous soft tissues: No paravertebral masses or abnormal enhancement. Miscellaneous: Central canal and foramina appear widely patent at all scanned levels. IMPRESSION: Unremarkable MRI examination of the thoracic spine without and with contrast. No evidence of epidural abscess collection. No area of abnormal enhancement is seen within thoracic spinal cord or in the spinal canal. Dictated by: Carson Mueller M.D. on 12/03/2024 at 11:08 MRI lumbar spine: Radiologist's Impression: PROCEDURE: MR LUMBAR SPINE WO/W CON INDICATIONS: weakness, legs, back pain TECHNIQUE: Noncontrast sagittal T1 spin echo and T2 fast spin echo, sagittal STIR, axial T1 and T2 fast spin echo through the lumbar spine. In cases with scoliosis, additional coronal T2 fast spin echo may be performed. After the administration of contrast, sagittal and axial T1 spin echo with fat saturation through the lumbar spine. COMPARISON: [facility], CT, CT LUMBAR SPINE W CON, 12/02/2024, 20:27. [facility], CT, CT HEAD/BRAIN WO CON, 12/02/2024, 20:27. FINDINGS: Image quality: Excellent. Alignment and curvature: There is normal bony alignment. Marrow: Marrow is of normal overall signal. No acute vertebral body compression fractures. No suspicious marrow enhancement. Partial sacralization of L5 is seen. No abnormal intraosseous enhancement. Spinal cord: Conus medullaris terminates at the L1 level. Visualized spinal cord demonstrates normal signal, without suspicious enhancement. Paraspinous soft tissues: No paravertebral masses or abnormal enhancement. T12-L1: Normal appearance. L1-L2: Normal appearance. L2-L3: Normal appearance. L3-L4: There is disc desiccation and loss of disc height. Broad-based disc bulge and bilateral facet arthrosis with mild hypertrophy of ligamentum flavum is seen causing mild central canal stenosis, moderate to severe right-sided neural foraminal narrowing and mild left-sided neural foraminal narrowing. Bulging disc likely contacting right L3 nerve root. L4-L5: Disc desiccation is seen. Broad-based disc bulge and bilateral facet arthrosis with mild to moderate bilateral neural foraminal narrowing. No significant central canal stenosis. L5-S1: Normal appearance. IMPRESSION: 1. Partial sacralization of L5. No marrow edema. No acute compression fracture or spondylolisthesis. No marrow edema. No abnormal intraosseous enhancement. 2. Degenerative disc bulge at L3-4 and L4-5 levels causing various degrees of central canal stenosis and bilateral neural foraminal narrowing as described above. 3. No area of abnormal enhancement is seen within the spinal canal. No paraspinous soft tissue abnormalities or abnormal enhancement. Dictated by: Carson Mueller M.D. on 12/03/2024 at 10:55 MR brain: Radiologist's Impression: PROCEDURE: MR HEAD/BRAIN WO/W CON INDICATIONS: Lower extremity progressive weakness TECHNIQUE: Noncontrast axial T1 spin echo, axial T2 fast spin echo, sagittal and axial FLAIR, coronal T2 fast spin echo, axial gradient echo, axial diffusion and ADC through the brain. After the administration of contrast, axial and coronal and sagittal 3D VIBE or T1 spin echo with fat saturation through the brain. COMPARISON: CT, CT HEAD/BRAIN WO CON, 01/26/2019, 20:45. [facility], CT, CT HEAD/BRAIN WO CON, 12/02/2024, 20:27. FINDINGS: Image quality: Excellent. CSF Spaces: Basal cisterns are patent. No extra-axial fluid collections. Ventricles are normal in size and shape. Brain: No midline shift. No intracranial bleeds or masses. No abnormal intracranial enhancement. The brainstem appears normal. Diffusion-weighted images demonstrate no acute infarct. No chronic ischemic insults. Normal intravascular flow voids are present. Skull and face: Calvarial marrow is normal in signal. Orbits appear normal. Sinuses: Sinuses and mastoids appear clear. IMPRESSION: 1. No acute intracranial process. Dictated by: Saranya Foster M.D. on 12/03/2024 at 15:37 MR cervical spine: Radiologist's Impression: PROCEDURE: MR CERVICAL SPINE WO/W CON INDICATIONS: Progressive bilateral lower extremity weakness TECHNIQUE: Noncontrast sagittal T1 spin echo and T2 fast spin echo, sagittal STIR, foraminal oblique sagittal T2 fast spin echo, axial gradient echo or T2 fast spin echo through the cervical spine. After the administration of contrast, axial and sagittal T1 spin echo with fat saturation through the cervical spine. COMPARISON: None. FINDINGS: Image quality: Excellent. Alignment and curvature: There is reversal cervical curvature is present C5-6. Marrow: Marrow is normal in overall signal, without suspicious enhancement. Spinal cord: Visualized spinal cord has normal size and signal. No cerebellar tonsillar herniation. No abnormal intramedullary enhancement. Paraspinous soft tissues: No paravertebral masses or suspicious enhancement. C2-3: No disc bulge, spinal stenosis or foraminal narrowing. C3-4: Mild disc bulge stenosis. Minimal bilateral foraminal narrowing. C4-5: Mild disc bulge with effacement the anterior thecal sac.. C5-6: Mild disc bulge with [id number] spinal stenosis. Moderate bilateral narrowing with uncovertebral hypertrophy. C6-7: Mild disc bulge with moderate spinal stenosis. Moderate bilateral foraminal narrowing with uncovertebral hypertrophy. C7-T1: No disc bulge, spinal stenosis or foraminal narrowing. IMPRESSION: Degenerative changes most prominent C5-6 and C6-7. Dictated by: Saranya Foster M.D. on 12/03/2024 at 15:41 MDM Narrative Medical decision making narrative: [age] old female presents with complaint of headaches generalized muscle aches and feeling shaky patient does seem to be little bit weaker in her legs on exam although in when on assisted able to roll over and body without much issue. On exam patient is not able to dorsiflex can sort of plantar flex she can lift her legs but definitely has a weakness right compared to left. Decreased DTRs. Rectal stones in place. Patient has urinary retention Landrum catheter was ultimately placed she would over 500 mL in her bladder. No point tenderness on exam but with her history my suspicion is higher for epidural abscess. Labs show white count 12.9 hemoglobin of 15 platelets of 483 ESR elevated at 21. Sodium is 136 electrolytes are otherwise appropriate glucose is 119 lactate 1.1 calcium is 9.8 AST ALT are 1559 with a total bilirubin 0.4 and alk-phos of 110 reactive protein is elevated 15.9 procalcitonin is 0.551 with a TSH of 3.3 and a qualitative that is negative. Dimer was 477. Procalcitonin 0.551 with a TSH of 3.3 and a serum which is negative. Blood cultures were obtained and sent. COVID/influenza/RSV is negative EKG sinus rhythm left axis deviation Imaging head CT shows no acute change, spine with contrast shows multilevel lumbar spine with neural foraminal thecal sac narrowing particularly L3-L4 no definite paravertebral abscess identified epidural region better assessed on MRI no significant abnormality on CT suspect transitional anatomy with partial sacralization of L5. UA he was nitrate positive, positive for ketones. Micro UDS is positive for amphetamines, methamphetamines MDMA and marijuana. Still of concern for potential epidural abscess infection patient was covered with vancomycin and Rocephin I do not have MRI capabilities at this time. They are unavailable til the morning. Patient had bladder scan as 550mL, she has a sensation that she needs to urinate. Unable to urinate in the department and landrum catheter was placed. Call to transfer patient as do not have neurosurgery or spinal surgery available at our facility. Patient is agreeable to transfer as needed. [address] Ureña neurosurgery. from [facility] spinal surgery reviewed patient's images suspect there maybe lesion elsewhere asked if we can obtain imaging of the cervical thoracic and lumbar spine MR with and without contrast with the plan for admission to hospitalist. Did discuss patient likely needs evaluation with additional specialties I do not have available here regardless of MR results. [address] [facility] asked if we can obtain MRI and call back with the results. Asked that we also add brain well as cervical, thoracic lumbar spine with and without contrast based on Dr. Horvath recommendations. Accepted pending MR results. 0450 Patient had pulled out line, complaining of headache. She is not febrile on check, glucose is 121. Labs were repeated, white count 10 hemoglobin is 14.1 platelets are 420. Sodium is 131 CO2 is 18 glucose is 132 creatinine 0.57 repeat lactate 1 AST is 46 with a ALT of 49 bilirubin 0.4 alk-phos of 114 procalcitonin 0.434 Calls out to multiple facilities. no beds available currently. 0554 [facility]: Spoke with coordinator. [address]Spoke with Dr. Dickens neurosurgery, ask if we can obtain MR results and callback. He did review imaging. If unable to get MR today or not in a timely manner to callback for ED to ED transfer. MR locke should be present at 0700. Patient signed out to Dr. Suarez while awaiting MR. 7am Dr. Suarez. Care is assumed MRI of true portions of her body able to be performed today at 10:30 a.m.. Opted to begin with lumbar and sacral areas. She was given oral diazepam to help with claustrophobia. MRIs return and show very little acute abnormality. There was no evidence of abscess or hematoma. She does have various disc bulging and central canal stenosis without abnormal enhancement of the spinal cord. Patient is re-examined. Her lower extremities are both still significantly weak. In asking her to sit up she needed help in sitting. In asking her to move her legs to the side of the bed, she use her arms, core strength to lift her legs to the edge of the bed. Does not describe significant decreased sensation in the lower extremities at this time. Not experiencing significant pain. We did try standing and legs bilaterally completely collapsed. She was able to get back in bed and again with upper abdominal and core strength she was able to move significantly. She used both hands to lift her legs back onto the bed. She is hyporeflexic and has toes slightly downgoing with Babinski testing. She does not have a headache, no meningismus signs. Patient is currently sleeping and resting comfortably. I suspect she has not had significant sleep for a number of days secondary to methamphetamine use as well as pain. Images have been pushed to [facility] in [place]. Awaiting call back to help with disposition. Next imaging studies of the cervical spine and brain could be obtained as early as 230 this afternoon. 145pm received a call back from the [facility] transfer center. Apparently the neurosurgeon was able to look at the images from the thoracic and lumbar spine MR did not see anything significant interest and felt the patient did not need to be transferred. I did let him know that the cervical spine and head are going to be done at 2:30 a.m. this afternoon and ask what recommendations he might have for this woman who can no longer stand up with mostly lower motor neuron signs now no suggestion of spinal or lumbar epidural abscess with MRI suggesting no acute cord injury at those levels. Will consider futher workup for for myelopathy with LP while waiting for MRI studies. LP results: Significant opening pressure, actually went out of the tube, greater than 60 cm of water. Clear fluid. 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 Negative for CMV, enterovirus, E coli, H influenza, HSV 1, HSV 6, listeria, Neisseria, parechovirus, strep agalactiae , strep pneumoniae, CSF VZV Discussion with Infectious Disease,Dr Massey. Recommended b.i.d. vancomycin, ceftriaxone, ampicillin to cover listeria if there was an alcohol history. There is an alcohol history however listeria is negative on the CSF PCR. 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 Massey. We will add acyclovir in meningitis/encephalitis doses. Pharmacy consultation to explain the dramatic doses. Now with a more definitive diagnosis, will see if hospital beds might be available closer to home. [facility] has a long waiting list, [facility] is not accepting any transfers until SundayDecember 08. Spoke with the [facility] transfer center and they will call back. I am expecting a call back from the neurosurgeon at [facility] [address] Dr Sands,[facility]. Agrees that current management seems appropriate, given the weakness likely will benefit from Infectious Disease as well as neurologic and patient consultation. We will talk to the hospital at [facility] to see if they are willing to accept and if beds are available [address] Padilla Lanezabrina in [place]. He felt that antibiotics and antivirals would be appropriate, see how the neurologic findings resolve. Did not think that inpatient Neurology would be required. Certainly neurosurgical consultation is not required at this point. With bed highly likely to be available at some point at [facility] we will cancel the transfer request to [facility] [address] Jacome, Hospitalist [facility]. Recommends Neuro Isolation Bed. Transfer center will enter into bed planning and will call back to confirm transfer <Eula Hendrickson, DO - Last Filed: 12/04/24 18:41> Lab Data Labs: Lab Results 12/02/24 12/02/24 12/02/24 Range/Units 19:30 23:16 23:16 WBC 12.9 H (4.5-11.0) X10^3/uL RBC 4.96 (4.0-5.2) X10^6/uL Hgb 15.6 (12.0-16.0) g/dL Hct 45.4 (36-46) % MCV 91.5 (80-100) fL MCH 31.4 (26-34) PG MCHC 34.3 (30-36) % RDW 13.9 (11.6-14.8) % Plt Count 483 H (150-400) X10^3/uL Neut % (Auto) 89.6 H (50-75) % Lymph % (Auto) 6.1 L (25-40) % [place] % (Auto) 4.1 (3-14) % Eos % (Auto) 0.0 L (2-4) % Baso % (Auto) 0.2 (0-2) % Neut # (Auto) 85618 H (9628-4905) /uL Lymph # (Auto) 800 L (9902-6640) /uL [place] # (Auto) 500 (0-900) /uL Eos # (Auto) 0 (0-450) /uL Baso # (Auto) 0 (0-100) /uL ESR 21 H (0-20) MM/HR D-Dimer 477 (<500) ng/ml Sodium 136 L (137-145) mmol/L Potassium 4.0 (3.4-5.1) mmol/L Chloride 102 (98-107) mmol/L Carbon Dioxide 23 (22-32) mmol/L BUN 14 (7-17) mg/dL Creatinine 0.60 (0.52-1.04) mg/dL Estimated GFR > 60 (>60) mL/min BUN/Creatinine Ratio 23.3 H (6-22) Glucose 119 H (70-100) mg/dL Lactate 1.1 (0.7-2.1) mmol/L Calcium 9.8 (8.4-10.2) mg/dL Total Bilirubin 0.4 (0.2-1.3) mg/dL AST 50 H (14-36) IU/L ALT 59 H (<35) IU/L Alkaline Phosphatase 110 (38-126) U/L Total Creatine Kinase 74 (30-135) U/L C-Reactive Protein 15.9 H (<1.0) mg/dL Total Protein 8.8 H (6.3-8.2) g/dL Albumin 4.9 (3.5-5.0) g/dL Globulin 3.9 (1.7-4.1) g/dL Albumin/Globulin Ratio 1.3 (1.0-2.8) Lipase 39 (23-300) U/L Procalcitonin 0.551 H (<0.5) ng/mL TSH 3.30 (0.47-4.68) uIU/mL Serum , Qual Negative (Negative) Urine Color Yellow Urine Appearance Clear Urine pH 5.5 Normal (4.5-8.0) Ur Specific [place] 1.025 (1.000-1.035) Urine Protein Negative (Negative) Urine Glucose (UA) Negative (Negative) g/dL Urine Ketones 2+ H (NEGATIVE) Urine Occult Blood Negative (Negative) Urine Nitrate Positive H (Negative) Urine Bilirubin 1+ H (NEGATIVE) Ur Bilirubin Confirm Negative (Negative) Urine Urobilinogen 0.2 (0.2) E.U./dL Ur Leukocyte Esterase Negative (NEGATIVE) Urine RBC None seen (0-5/HPF) Urine WBC 0-1/hpf (0-5/HPF) Ur Squamous Epith Cells 0-1 /hpf (0-5/HPF) Urine Bacteria Many (>30) H (None) Ur Culture Indicated? Specimen cultured Vol Urine Centrifuged 10ml (spun) CSF Tube Number CSF Volume CSF Appearance (Clear) CSF Color (Colorless) CSF WBC (0-5) MONO/uL CSF RBC RBC /uL CSF Mononuclear WBCs % CSF Polynuclear WBCs % CSF Glucose (40-70) mg/dL CSF Total Protein (12-60) mg/dL CSF C.neoform/gat PCR (Not Detect) CSF CMV DNA (PCR) (Not Detect) CSF Enterovirus (PCR) (Not Detect) CSF E. coli (PCR) (Not Detect) CSF H. influenzae (PCR) (Not Detect) CSF HSV I (PCR) (Not Detect) CSF HSV II (PCR) (Not Detect) CSF HHV 6 (PCR) (Not Detect) CSF L.monocytogenes PCR (Not Detect) CSF N. meningitidis PCR (Not Detect) CSF Parechovirus (PCR) (Not Detect) CSF S. agalactiae (PCR) (Not Detect) CSF S. pneumoniae (PCR) (Not Detect) CSF VZV (PCR) (Not Detecte) U Opiates 300ng/mL cut Negative (Negative) Ur Oxycodone Screen Negative (Negative) Urine Methadone Screen Negative (Negative) Ur Barbiturates Screen Negative (Negative) U Tricyclic Antidepress Negative (Negative) Ur Phencyclidine Scrn Negative (Negative) Ur Amphetamines Screen Positive H (Negative) U Methamphetamines Scrn Positive H (Negative) Ur MDMA Scrn (Ecstasy) Positive H (Negative) U Benzodiazepines Scrn Negative (Negative) Urine Cocaine Screen Negative (Negative) U Marijuana (THC) Screen Positive H (Negative) Urine Specific [place] Normal (Normal) Ur Creatinine Normal (Normal) RPR w/Rflx to Titer (Non Reactive) SARS-CoV-2 (PCR) Negative (Negative) Influenza A (RT-PCR) Flu a negative (NEGATIVE) Influenza B (RT-PCR) Flu b negative (NEGATIVE) RSV (PCR) Negative (Negative) 12/03/24 12/03/24 12/03/24 Range/Units 05:17 14:25 14:28 WBC 10.0 (4.5-11.0) X10^3/uL RBC 4.55 (4.0-5.2) X10^6/uL Hgb 14.1 (12.0-16.0) g/dL Hct 41.4 (36-46) % MCV 90.9 (80-100) fL MCH 30.9 (26-34) PG MCHC 34.0 (30-36) % RDW 13.7 (11.6-14.8) % Plt Count 420 H (150-400) X10^3/uL Neut % (Auto) 84.0 H (50-75) % Lymph % (Auto) 9.0 L (25-40) % [place] % (Auto) 6.5 (3-14) % Eos % (Auto) 0.1 L (2-4) % Baso % (Auto) 0.4 (0-2) % Neut # (Auto) 8400 H (3896-6453) /uL Lymph # (Auto) 900 L (2296-6423) /uL [place] # (Auto) 700 (0-900) /uL Eos # (Auto) 0 (0-450) /uL Baso # (Auto) 0 (0-100) /uL ESR (0-20) MM/HR D-Dimer (<500) ng/ml Sodium 131 L (137-145) mmol/L Potassium 3.6 (3.4-5.1) mmol/L Chloride 104 (98-107) mmol/L Carbon Dioxide 18 L (22-32) mmol/L BUN 10 (7-17) mg/dL Creatinine 0.57 (0.52-1.04) mg/dL Estimated GFR > 60 (>60) mL/min BUN/Creatinine Ratio 17.5 (6-22) Glucose 132 H (70-100) mg/dL Lactate 1.0 (0.7-2.1) mmol/L Calcium 8.8 (8.4-10.2) mg/dL Total Bilirubin 0.4 (0.2-1.3) mg/dL AST 46 H (14-36) IU/L ALT 49 H (<35) IU/L Alkaline Phosphatase 114 (38-126) U/L Total Creatine Kinase (30-135) U/L C-Reactive Protein (<1.0) mg/dL Total Protein 7.2 (6.3-8.2) g/dL Albumin 4.1 (3.5-5.0) g/dL Globulin 3.1 (1.7-4.1) g/dL Albumin/Globulin Ratio 1.3 (1.0-2.8) Lipase (23-300) U/L Procalcitonin 0.434 (<0.5) ng/mL TSH (0.47-4.68) uIU/mL Serum , Qual (Negative) Urine Color Urine Appearance Urine pH (4.5-8.0) Ur Specific [place] (1.000-1.035) Urine Protein (Negative) Urine Glucose (UA) (Negative) g/dL Urine Ketones (NEGATIVE) Urine Occult Blood (Negative) Urine Nitrate (Negative) Urine Bilirubin (NEGATIVE) Ur Bilirubin Confirm (Negative) Urine Urobilinogen (0.2) E.U./dL Ur Leukocyte Esterase (NEGATIVE) Urine RBC (0-5/HPF) Urine WBC (0-5/HPF) Ur Squamous Epith Cells (0-5/HPF) Urine Bacteria (None) Ur Culture Indicated? Vol Urine Centrifuged CSF Tube Number 3 CSF Volume 1.25 ml CSF Appearance Clear (Clear) CSF Color Colorless (Colorless) CSF WBC 245 H (0-5) MONO/uL CSF RBC 622 RBC /uL CSF Mononuclear WBCs 91 % CSF Polynuclear WBCs 9 % CSF Glucose 33 L (40-70) mg/dL CSF Total Protein 250 H* (12-60) mg/dL CSF C.neoform/gat PCR Not detected (Not Detect) CSF CMV DNA (PCR) Not detected (Not Detect) CSF Enterovirus (PCR) Not detected (Not Detect) CSF E. coli (PCR) Not detected (Not Detect) CSF H. influenzae (PCR) Not detected (Not Detect) CSF HSV I (PCR) Not detected (Not Detect) CSF HSV II (PCR) Detected (Not Detect) CSF HHV 6 (PCR) Not detected (Not Detect) CSF L.monocytogenes PCR Not detected (Not Detect) CSF N. meningitidis PCR Not detected (Not Detect) CSF Parechovirus (PCR) Not detected (Not Detect) CSF S. agalactiae (PCR) Not detected (Not Detect) CSF S. pneumoniae (PCR) Not detected (Not Detect) CSF VZV (PCR) Not detected (Not Detecte) U Opiates 300ng/mL cut (Negative) Ur Oxycodone Screen (Negative) Urine Methadone Screen (Negative) Ur Barbiturates Screen (Negative) U Tricyclic Antidepress (Negative) Ur Phencyclidine Scrn (Negative) Ur Amphetamines Screen (Negative) U Methamphetamines Scrn (Negative) Ur MDMA Scrn (Ecstasy) (Negative) U Benzodiazepines Scrn (Negative) Urine Cocaine Screen (Negative) U Marijuana (THC) Screen (Negative) Urine Specific [place] (Normal) Ur Creatinine (Normal) RPR w/Rflx to Titer (Non Reactive) SARS-CoV-2 (PCR) (Negative) Influenza A (RT-PCR) (NEGATIVE) Influenza B (RT-PCR) (NEGATIVE) RSV (PCR) (Negative) 12/03/24 12/04/24 Range/Units 16:35 08:22 WBC 8.9 (4.5-11.0) X10^3/uL RBC 4.53 (4.0-5.2) X10^6/uL Hgb 14.0 (12.0-16.0) g/dL Hct 40.8 (36-46) % MCV 90.1 (80-100) fL MCH 30.9 (26-34) PG MCHC 34.3 (30-36) % RDW 13.7 (11.6-14.8) % Plt Count 450 H (150-400) X10^3/uL Neut % (Auto) 56.4 D (50-75) % Lymph % (Auto) 24.2 L (25-40) % [place] % (Auto) 18.5 H (3-14) % Eos % (Auto) 0.4 L (2-4) % Baso % (Auto) 0.5 (0-2) % Neut # (Auto) 5000 (0290-8656) /uL Lymph # (Auto) 2200 (0378-8884) /uL [place] # (Auto) 1700 H (0-900) /uL Eos # (Auto) 0 (0-450) /uL Baso # (Auto) 0 (0-100) /uL ESR (0-20) MM/HR D-Dimer (<500) ng/ml Sodium 132 L (137-145) mmol/L Potassium 3.7 (3.4-5.1) mmol/L Chloride 103 (98-107) mmol/L Carbon Dioxide 25 (22-32) mmol/L BUN 12 (7-17) mg/dL Creatinine 0.67 (0.52-1.04) mg/dL Estimated GFR > 60 (>60) mL/min BUN/Creatinine Ratio 17.9 (6-22) Glucose 104 H (70-100) mg/dL Lactate (0.7-2.1) mmol/L Calcium 8.5 (8.4-10.2) mg/dL Total Bilirubin 0.2 (0.2-1.3) mg/dL AST 38 H (14-36) IU/L ALT 36 H (<35) IU/L Alkaline Phosphatase 90 (38-126) U/L Total Creatine Kinase (30-135) U/L C-Reactive Protein (<1.0) mg/dL Total Protein 6.6 (6.3-8.2) g/dL Albumin 3.6 (3.5-5.0) g/dL Globulin 3.0 (1.7-4.1) g/dL Albumin/Globulin Ratio 1.2 (1.0-2.8) Lipase (23-300) U/L Procalcitonin (<0.5) ng/mL TSH (0.47-4.68) uIU/mL Serum , Qual (Negative) Urine Color Urine Appearance Urine pH (4.5-8.0) Ur Specific [place] (1.000-1.035) Urine Protein (Negative) Urine Glucose (UA) (Negative) g/dL Urine Ketones (NEGATIVE) Urine Occult Blood (Negative) Urine Nitrate (Negative) Urine Bilirubin (NEGATIVE) Ur Bilirubin Confirm (Negative) Urine Urobilinogen (0.2) E.U./dL Ur Leukocyte Esterase (NEGATIVE) Urine RBC (0-5/HPF) Urine WBC (0-5/HPF) Ur Squamous Epith Cells (0-5/HPF) Urine Bacteria (None) Ur Culture Indicated? Vol Urine Centrifuged CSF Tube Number CSF Volume CSF Appearance (Clear) CSF Color (Colorless) CSF WBC (0-5) MONO/uL CSF RBC RBC /uL CSF Mononuclear WBCs % CSF Polynuclear WBCs % CSF Glucose (40-70) mg/dL CSF Total Protein (12-60) mg/dL CSF C.neoform/gat PCR (Not Detect) CSF CMV DNA (PCR) (Not Detect) CSF Enterovirus (PCR) (Not Detect) CSF E. coli (PCR) (Not Detect) CSF H. influenzae (PCR) (Not Detect) CSF HSV I (PCR) (Not Detect) CSF HSV II (PCR) (Not Detect) CSF HHV 6 (PCR) (Not Detect) CSF L.monocytogenes PCR (Not Detect) CSF N. meningitidis PCR (Not Detect) CSF Parechovirus (PCR) (Not Detect) CSF S. agalactiae (PCR) (Not Detect) CSF S. pneumoniae (PCR) (Not Detect) CSF VZV (PCR) (Not Detecte) U Opiates 300ng/mL cut (Negative) Ur Oxycodone Screen (Negative) Urine Methadone Screen (Negative) Ur Barbiturates Screen (Negative) U Tricyclic Antidepress (Negative) Ur Phencyclidine Scrn (Negative) Ur Amphetamines Screen (Negative) U Methamphetamines Scrn (Negative) Ur MDMA Scrn (Ecstasy) (Negative) U Benzodiazepines Scrn (Negative) Urine Cocaine Screen (Negative) U Marijuana (THC) Screen (Negative) Urine Specific Ralston (Normal) Ur Creatinine (Normal) RPR w/Rflx to Titer Non reactive (Non Reactive) SARS-CoV-2 (PCR) (Negative) Influenza A (RT-PCR) (NEGATIVE) Influenza B (RT-PCR) (NEGATIVE) RSV (PCR) (Negative) Point of Care Testing Glucose POC 121 MDM Narrative Medical decision making narrative: [age] old female presents with complaint of headaches generalized muscle aches and feeling shaky patient does seem to be little bit weaker in her legs on exam although in when on assisted able to roll over and body without much issue. On exam patient is not able to dorsiflex can sort of plantar flex she can lift her legs but definitely has a weakness right compared to left. Decreased DTRs. Rectal stones in place. Patient has urinary retention Landrum catheter was ultimately placed she would over 500 mL in her bladder. No point tenderness on exam but with her history my suspicion is higher for epidural abscess. Labs show white count 12.9 hemoglobin of 15 platelets of 483 ESR elevated at 21. Sodium is 136 electrolytes are otherwise appropriate glucose is 119 lactate 1.1 calcium is 9.8 AST ALT are 1559 with a total bilirubin 0.4 and alk-phos of 110 reactive protein is elevated 15.9 procalcitonin is 0.551 with a TSH of 3.3 and a qualitative that is negative. Dimer was 477. Procalcitonin 0.551 with a TSH of 3.3 and a serum which is negative. Blood cultures were obtained and sent. COVID/influenza/RSV is negative EKG sinus rhythm left axis deviation Imaging head CT shows no acute change, spine with contrast shows multilevel lumbar spine with neural foraminal thecal sac narrowing particularly L3-L4 no definite paravertebral abscess identified epidural region better assessed on MRI no significant abnormality on CT suspect transitional anatomy with partial sacralization of L5. UA he was nitrate positive, positive for ketones. Micro UDS is positive for amphetamines, methamphetamines MDMA and marijuana. Still of concern for potential epidural abscess infection patient was covered with vancomycin and Rocephin I do not have MRI capabilities at this time. They are unavailable til the morning. Patient had bladder scan as 550mL, she has a sensation that she needs to urinate. Unable to urinate in the department and landrum catheter was placed. Call to transfer patient as do not have neurosurgery or spinal surgery available at our facility. Patient is agreeable to transfer as needed. [address] Ureña neurosurgery. from [facility] spinal surgery reviewed patient's images suspect there maybe lesion elsewhere asked if we can obtain imaging of the cervical thoracic and lumbar spine MR with and without contrast with the plan for admission to hospitalist. Did discuss patient likely needs evaluation with additional specialties I do not have available here regardless of MR results. [address] [facility] asked if we can obtain MRI and call back with the results. Asked that we also add brain well as cervical, thoracic lumbar spine with and without contrast based on Dr. Horvath recommendations. Accepted pending MR results. 0450 Patient had pulled out line, complaining of headache. She is not febrile on check, glucose is 121. Labs were repeated, white count 10 hemoglobin is 14.1 platelets are 420. Sodium is 131 CO2 is 18 glucose is 132 creatinine 0.57 repeat lactate 1 AST is 46 with a ALT of 49 bilirubin 0.4 alk-phos of 114 procalcitonin 0.434 Calls out to multiple facilities. no beds available currently. 4332 [facility]: Spoke with coordinator. [address]Spoke with Dr. Dickens neurosurgery, ask if we can obtain MR results and callback. He did review imaging. If unable to get MR today or not in a timely manner to callback for ED to ED transfer. MR locke should be present at 0700. Patient signed out to Dr. Suarez while awaiting MR. 7am Dr. Suarez. Care is assumed MRI of true portions of her body able to be performed today at 10:30 a.m.. Opted to begin with lumbar and sacral areas. She was given oral diazepam to help with claustrophobia. MRIs return and show very little acute abnormality. There was no evidence of abscess or hematoma. She does have various disc bulging and central canal stenosis without abnormal enhancement of the spinal cord. Patient is re-examined. Her lower extremities are both still significantly weak. In asking her to sit up she needed help in sitting. In asking her to move her legs to the side of the bed, she use her arms, core strength to lift her legs to the edge of the bed. Does not describe significant decreased sensation in the lower extremities at this time. Not experiencing significant pain. We did try standing and legs bilaterally completely collapsed. She was able to get back in bed and again with upper abdominal and core strength she was able to move significantly. She used both hands to lift her legs back onto the bed. She is hyporeflexic and has toes slightly downgoing with Babinski testing. She does not have a headache, no meningismus signs. Patient is currently sleeping and resting comfortably. I suspect she has not had significant sleep for a number of days secondary to methamphetamine use as well as pain. Images have been pushed to [facility] in [place]. Awaiting call back to help with disposition. Next imaging studies of the cervical spine and brain could be obtained as early as 230 this afternoon. 145pm received a call back from the [facility] skin transfer center. Apparently the neurosurgeon was able to look at the images from the thoracic and lumbar spine MR did not see anything significant interest and felt the patient did not need to be transferred. I did let him know that the cervical spine and head are going to be done at 2:30 a.m. this afternoon and ask what recommendations he might have for this woman who can no longer stand up with mostly lower motor neuron signs now no suggestion of spinal or lumbar epidural abscess with MRI suggesting no acute cord injury at those levels. Will consider futher workup for for myelopathy with LP while waiting for MRI studies. LP results: Significant opening pressure, actually went out of the tube, greater than 60 cm of water. Clear fluid. 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 Negative for CMV, enterovirus, E coli, H influenza, HSV 1, HSV 6, listeria, Neisseria, parechovirus, strep agalactiae , strep pneumoniae, CSF VZV Discussion with Infectious Disease,Dr Massey. Recommended b.i.d. vancomycin, ceftriaxone, ampicillin to cover listeria if there was an alcohol history. There is an alcohol history however listeria is negative on the CSF PCR. 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 Massey. We will add acyclovir in meningitis/encephalitis doses. Pharmacy consultation to explain the dramatic doses. Now with a more definitive diagnosis, will see if hospital beds might be available closer to home. [facility] has a long waiting list, [facility] is not accepting any transfers until SundayDecember 08. Spoke with the [facility] transfer center and they will call back. I am expecting a call back from the neurosurgeon at [facility] in [place] [address] Sands,[facility]. Agrees that current management seems appropriate, given the weakness likely will benefit from Infectious Disease as well as neurologic and patient consultation. We will talk to the hospital at [facility] to see if they are willing to accept and if beds are available [address] Causey [facility] in [place]. He felt that antibiotics and antivirals would be appropriate, see how the neurologic findings resolve. Did not think that inpatient Neurology would be required. Certainly neurosurgical consultation is not required at this point. With bed highly likely to be available at some point at [facility] we will cancel the transfer request to [facility] [address] Jacome, Hospitalist [facility]. Recommends Neuro Isolation Bed. Transfer center will enter into bed planning and will call back to confirm transfer 12/03/2024 Dr. Lou: Patient signed back out to myself. Reviewed patient has a acyclovir order regularly as per Dr. Suarez and her note they do recommend continuing antibiotics currently these were added back. Repeat labs were ordered for the morning. Patient had no events overnight. Patient is alert, appropriate and appears much improved from when I saw her on the prior shift. Patient signed out to Dr. Hendrickson while awaiting transfer. 12/04/24 Dr. Hendrickson- patient signed out to me by Dr. Lou. Patient currently sleeping. 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 Had MRI entire neurologic system without evidence of abscess or other neurologic emergency. Multiple places have been called in regards to transfer waiting for bed availability. Currently continuing HSV treatment with acyclovir it antibiotics. Blood work overall showing improvement DVT prophalaxisis 0920 patient is awake alert she is able to move her legs but right leg quickly falls to the gurney along with left left leg does seem a little bit stronger. She does report some improvement. We have recalled all places and beds. [facility] reports that as long as MRIs are negative there is no need to transfer. All other places are boarding in beyond capacity Dr. Ren updated on patient's symptoms test results in happy to accept Critical Care Time <Ashley Suarez MD - Last Filed: 12/05/24 07:18> Critical Care Time Critical Care Time: Yes Total Critical Care Time: 97 Attestation: Critical care time is separate from other billable procedures. There is a high probability of a significant, sudden or life-threatening deterioration that requires my full and direct attention, intervention and personal management. 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
--- NOTE | 2024-12-02 18:54 | PC.NURSE ---
patient able to lift feet on and off wheelchair foot rests, lined up wheelchair to bed for patient to pivot and transfer to wheelchair. Patient stood and buckled at bedside, this Rn caught patient and assisted patient forward to [facility]. Patient able to scoot body on bed and reposition herself freely.
--- NOTE | 2024-12-02 19:04 | EKG_ITS ---
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
[2024-12-02] MEDS: ACETAMINOPHEN 325 MG TABLET 975 MG PO (19:36)
[2024-12-02] MEDS: SODIUM CHLORIDE 0.9% 1,000 ML 1000 ML IV (19:37)
[2024-12-02] MEDS: KETOROLAC 30 MG/ML VIAL 15 MG IV (19:41)
[2024-12-02 19:47] LABS: Add Manual Diff / Slide Review NO; Basophils Absolute Auto 0 /uL (0-100); Basophils Percent Auto 0.2 % (0-2); Eosinophils Absolute Auto 0 /uL (0-450); Hematocrit 45.4 % (36-46); Hemoglobin 15.6 g/dL (12.0-16.0); Lymphocytes Absolute Auto 800 /uL (1100-4500); Lymphocytes Percent Auto 6.1 % (25-40); Mean Corpuscular HGB Conc 34.3 % (30-36); Mean Corpuscular Hemoglobin 31.4 PG (26-34); Mean Corpuscular Volume 91.5 fL (80-100); Monocytes Absolute Auto 500 /uL (0-900); Monocytes Percent Auto 4.1 % (3-14); Neutrophils Absolute Auto 11600 /uL (1500-7000); Neutrophils Percent Auto 89.6 % (50-75); Platelet Count 483 X10^3/uL (150-400); Red Blood Cell Count 4.96 X10^6/uL (4.0-5.2); Red Cell Distribution Width 13.9 % (11.6-14.8); White Blood Cell Count 12.9 X10^3/uL (4.5-11.0)
[2024-12-02 19:58] LABS: D Dimer 477 ng/ml (<500)
[2024-12-02 20:03] LABS: Alanine Aminotransferase 59 IU/L (<35); Albumin 4.9 g/dL (3.5-5.0); Albumin Globulin Ratio 1.3 (1.0-2.8); Alkaline Phosphatase 110 U/L (38-126); Aspartate Aminotransferase 50 IU/L (14-36); BUN Creatinine Ratio 23.3 (6-22); Bilirubin Total 0.4 mg/dL (0.2-1.3); Blood Urea Nitrogen 14 mg/dL (7-17); Calcium 9.8 mg/dL (8.4-10.2); Carbon Dioxide 23 mmol/L (22-32); Chloride 102 mmol/L (98-107); Estimated Glomerular Filt Rate > 60 mL/min (>60); Globulin 3.9 g/dL (1.7-4.1); Glucose 119 mg/dL (70-100); HEMOLYSIS < 15 (0-50); Lipase 39 U/L (23-300); Sodium 136 mmol/L (137-145); Total Protein 8.8 g/dL (6.3-8.2)
[2024-12-02 20:04] LABS: Erythrocyte Sedimentation Rate 21 MM/HR (0-20)
[2024-12-02 20:22] LABS: C-Reactive Protein Quant 15.9 mg/dL (<1.0)
--- NOTE | 2024-12-02 20:24 | DI.CT.S_ITS ---
PROCEDURE: CT HEAD/BRAIN WO CON INDICATIONS: jimenez/ hurts all over/leg pain/weakness TECHNIQUE: Noncontrast 4.5 mm thick angled axial sections acquired from the foramen magnum to the vertex, with coronal and sagittal reformats. For radiation dose reduction, the following was used: automated exposure control, adjustment of mA and/or kV according to patient size. COMPARISON: None. FINDINGS: Image quality: Diagnostic CSF spaces: Basal cisterns are patent. Lateral ventricles are symmetric. Volume: Generally maintained. Brain: No acute intracranial hematoma. No gross loss of hay-white differentiation. Craniofacial structures: No significant paranasal sinus opacity. IMPRESSION: No acute intracranial pathology. If there is high concern for parenchymal pathology, consider further evaluation with MRI. Dictated by: Earnest Roberson M.D. on 12/02/2024 at 21:30 Approved by: Earnest Roberson M.D. on 12/02/2024 at 21:31
--- NOTE | 2024-12-02 20:24 | DI.CT.S_ITS ---
PROCEDURE: CT LUMBAR SPINE W CON INDICATIONS: legs hurt, weakness TECHNIQUE: After the administration of intravenous Isovue contrast, 3 mm thick sections acquired through the levels of interest. Sagittal and coronal reformats were then constructed. For radiation dose reduction, the following was used: automated exposure control. COMPARISON: None. FINDINGS: Image quality: Diagnostic Bones: Vertebral body heights are well maintained. No high-grade degenerative changes. No traumatic subluxation. No displaced fracture. Dass-nj-toqdehst L4-L5 facet arthropathy, greater on the right. Mild facet arthropathy seen elsewhere the lumbar spine. Partially sacralized S1 Soft tissues: No abdominal aortic aneurysm. Mild nonspecific distal esophageal wall thickening. No paravertebral fluid collections. On limited CT assessment, suspected disc protrusions and bulges are seen at L3-L4 and L4-L5 resulting in at least mild thecal sac narrowing. Mild bulges are seen elsewhere. Moderate neural foraminal narrowing is seen at the right L1-L2 neural foramen and moderate to severe neural foraminal narrowing seen at the right L3-L4 neural foramen. Mild and [id number]-jj-ggywarve areas of neural foraminal narrowing seen elsewhere in the mid and lower lumbar spine. Mild thecal sac narrowing seen L3-L4 and L4-L5 IMPRESSION: No acute fracture. Disc disease at multiple levels in the lumbar spine with neural foraminal and thecal sac narrowing, particularly at L3-L4, as described above. This could be better assessed on MRI if clinically indicated. No definite paravertebral abscess identified The epidural region is better assessed on MRI, no significant abnormality seen on CT. Suspected transitional anatomy with partial sacralization of L5. Dictated by: Earnest Roberson M.D. on 12/02/2024 at 21:32 Approved by: Earnest Roberson M.D. on 12/02/2024 at 21:38
[2024-12-02] MEDS: LORazepam 2 MG/ML INJ 0.5 MG IV (20:32)
[2024-12-02 20:38] LABS: Influenza A - CEPHEID Flu A NEGATIVE (NEGATIVE); Influenza B - CEPHEID Flu B NEGATIVE (NEGATIVE); Respiratory Syncytial Virus Negative (Negative)
[2024-12-02 20:39] LABS: COVID-19 CEPHEID 4-PLEX PCR Negative (Negative)
[2024-12-02 20:40] LABS: Pregnancy Test Serum,Qual Negative (Negative)
[2024-12-02 20:41] LABS: Creatine Kinase 74 U/L (30-135); Lactate (Lactic Acid) 1.1 mmol/L (0.7-2.1)
[2024-12-02 20:58] LABS: Procalcitonin 0.551 ng/mL (<0.5)
--- NOTE | 2024-12-02 22:20 | PC.NURSE ---
2213: pt states she tried to pee for 30 minutes. Bladder scanned for 578ml. Patient placed on bed solorzano ans eh shought she could go now. Was able to urinate 40ml. Dr. Lou aware, new orders placed.
[2024-12-02] MEDS: cefTRIAXone 2,000 MG in SODIUM CHLORIDE 0.9% 100 ML 200 MG IV (22:31)
[2024-12-02] MEDS: VANCOMYCIN 1,500 MG/300 ML PIGGYBACK 200 MG IV (23:19)
[2024-12-02 23:39] LABS: Ur Creatinine Normal (Normal); Ur Specific Gravity Normal (Normal); Urine Cocaine Negative (Negative); Urine Tetrahydrocannabinol Positive (Negative); Urine pH Normal (Normal)
[2024-12-02 23:40] LABS: UR Morphine/Opiate cutoff 300 Negative (Negative); Urine Amphetamines Positive (Negative); Urine Barbiturates Negative (Negative); Urine Benzodiazepines Negative (Negative); Urine MDMA Positive (Negative); Urine Methamphetamines Positive (Negative); Urine Phencyclidine Negative (Negative)
[2024-12-02 23:41] LABS: Urine Methadone Negative (Negative); Urine Oxycodone Negative (Negative); Urine Tricyclic Antidepressant Negative (Negative)
[2024-12-02 23:54] LABS: Appearance Urine UA CLEAR; Bilirubin Urine UA 1+ (NEGATIVE); Color Urine UA YELLOW; Glucose Urine UA NEGATIVE (Negative); Ketones Urine UA 2+ (NEGATIVE); Leukocyte Esterase Urine UA NEGATIVE (NEGATIVE); Nitrite Urine UA POSITIVE (Negative); Occult Blood Urine UA NEGATIVE (Negative); Protein Urine UA NEGATIVE (Negative); Specific Gravity Urine UA 1.025 (1.000-1.035); Urobilinogen Urine UA 0.2 E.U./dL (0.2)
[2024-12-02 23:55] LABS: pH Urine UA 5.5 (4.5-8.0)
[2024-12-03] VITALS (62 sets, daily range): BP systolic 102–165; BP diastolic 58–98; PULSE 42–88; RESP 13–53; TEMP 36.5–37.1; O2SAT 93–100
[2024-12-03 00:02] LABS: Bacteria Urine Many (>30); Culture Indicated Urine Specimen Cultured; Ictotest Urine Negative (Negative); RBC Urine None Seen (0-5/HPF); Squamous Epithelial Cell Urine 0-1 /HPF (0-5/HPF); Urine Volume 10mL (spun); WBC Urine 0-1/HPF (0-5/HPF)
--- NOTE | 2024-12-03 00:05 | DI.MRI.S_ITS ---
PROCEDURE: MR LUMBAR SPINE WO/W CON INDICATIONS: weakness, legs, back pain TECHNIQUE: Noncontrast sagittal T1 spin echo and T2 fast spin echo, sagittal STIR, axial T1 and T2 fast spin echo through the lumbar spine. In cases with scoliosis, additional coronal T2 fast spin echo may be performed. After the administration of contrast, sagittal and axial T1 spin echo with fat saturation through the lumbar spine. COMPARISON: Formerly [facility], CT, CT LUMBAR SPINE W CON, 12/02/2024, 20:27. Former[facility], CT, CT HEAD/BRAIN WO CON, 12/02/2024, 20:27. FINDINGS: Image quality: Excellent. Alignment and curvature: There is normal bony alignment. Marrow: Marrow is of normal overall signal. No acute vertebral body compression fractures. No suspicious marrow enhancement. Partial sacralization of L5 is seen. No abnormal intraosseous enhancement. Spinal cord: Conus medullaris terminates at the L1 level. Visualized spinal cord demonstrates normal signal, without suspicious enhancement. Paraspinous soft tissues: No paravertebral masses or abnormal enhancement. T12-L1: Normal appearance. L1-L2: Normal appearance. L2-L3: Normal appearance. L3-L4: There is disc desiccation and loss of disc height. Broad-based disc bulge and bilateral facet arthrosis with mild hypertrophy of ligamentum flavum is seen causing mild central canal stenosis, moderate to severe right-sided neural foraminal narrowing and mild left-sided neural foraminal narrowing. Bulging disc likely contacting right L3 nerve root. L4-L5: Disc desiccation is seen. Broad-based disc bulge and bilateral facet arthrosis with mild to moderate bilateral neural foraminal narrowing. No significant central canal stenosis. L5-S1: Normal appearance. IMPRESSION: 1. Partial sacralization of L5. No marrow edema. No acute compression fracture or spondylolisthesis. No marrow edema. No abnormal intraosseous enhancement. 2. Degenerative disc bulge at L3-4 and L4-5 levels causing various degrees of central canal stenosis and bilateral neural foraminal narrowing as described above. 3. No area of abnormal enhancement is seen within the spinal canal. No paraspinous soft tissue abnormalities or abnormal enhancement. Dictated by: Carson Mueller M.D. on 12/03/2024 at 10:55 Approved by: Carson Mueller M.D. on 12/03/2024 at 11:01
--- NOTE | 2024-12-03 01:32 | DI.MRI.S_ITS ---
PROCEDURE: MR THORACIC SPINE WO/W CON INDICATIONS: r/o epidural abscess vs other, leg weakness, urinary retenti TECHNIQUE: Noncontrast sagittal T1 spin echo and T2 fast spin echo, sagittal STIR, axial T1 and T2 fast spin echo through the thoracic spine. After the administration of contrast, axial and sagittal T1 spin echo with fat saturation through the thoracic spine. COMPARISON: None. FINDINGS: Image quality: Excellent. Alignment and curvature: There is normal bony alignment. Marrow: Marrow is of normal overall signal. No acute vertebral body compression fractures. No area of abnormal intraosseous enhancement. Spinal cord: Visualized spinal cord is of normal signal and size, without abnormal enhancement. Paraspinous soft tissues: No paravertebral masses or abnormal enhancement. Miscellaneous: Central canal and foramina appear widely patent at all scanned levels. IMPRESSION: Unremarkable MRI examination of the thoracic spine without and with contrast. No evidence of epidural abscess collection. No area of abnormal enhancement is seen within thoracic spinal cord or in the spinal canal. Dictated by: Carson Mueller M.D. on 12/03/2024 at 11:08 Approved by: Carson Mueller M.D. on 12/03/2024 at 11:11
[2024-12-03] MEDS: KETOROLAC 30 MG/ML VIAL 15 MG IV ×3 (01:41→22:29)
--- NOTE | 2024-12-03 02:14 | PC.NURSE ---
Per Dr. Lou, pt OK to have water PO
[2024-12-03] MEDS: ACETAMINOPHEN 325 MG TABLET 975 MG PO ×2 (02:24→20:59)
[2024-12-03] MEDS: HALOPERIDOL 5 MG/ML VIAL IM (04:54)
--- NOTE | 2024-12-03 04:57 | PC.NURSE ---
0441: This nurse heard patient cursing inside her room loudly. This nurse entered the room and asked patient what was going on. the patient began yelling I can't do this anymore. Followed by many swear words and she began thrashing violently in her gurney. Charge Nurse Leola at bedside trying to help patient to calm down. Dr. Luo in to assess patient at. Pt still yelling out, swearing and thrashing. Dr. Lou ordered medications, see MAR for admin. 0500: pt lying in gurney with eyes shut, respirations even and unlabored.
--- NOTE | 2024-12-03 05:12 | PC.NURSE ---
pt belongings were removed from the room, placed in belongings bag and in locker 6. Locked and bustillos for the locker is attached to the pt chart. DARRIAN hernandez
[2024-12-03] MEDS: MORPHINE 4 MG/ML INJ IV (05:15)
[2024-12-03] MEDS: SODIUM CHLORIDE 0.9% 1,000 ML 150 ML IV (05:20)
[2024-12-03 05:26] LABS: Add Manual Diff / Slide Review NO; Basophils Absolute Auto 0 /uL (0-100); Basophils Percent Auto 0.4 % (0-2); Eosinophils Absolute Auto 0 /uL (0-450); Eosinophils Percent Auto 0.1 % (2-4); Hematocrit 41.4 % (36-46); Hemoglobin 14.1 g/dL (12.0-16.0); Lymphocytes Absolute Auto 900 /uL (1100-4500); Mean Corpuscular Hemoglobin 30.9 PG (26-34); Mean Corpuscular Volume 90.9 fL (80-100); Monocytes Absolute Auto 700 /uL (0-900); Monocytes Percent Auto 6.5 % (3-14); Neutrophils Absolute Auto 8400 /uL (1500-7000); Platelet Count 420 X10^3/uL (150-400); Red Blood Cell Count 4.55 X10^6/uL (4.0-5.2); Red Cell Distribution Width 13.7 % (11.6-14.8)
[2024-12-03 05:41] LABS: Alanine Aminotransferase 49 IU/L (<35); Albumin 4.1 g/dL (3.5-5.0); Albumin Globulin Ratio 1.3 (1.0-2.8); Alkaline Phosphatase 114 U/L (38-126); Aspartate Aminotransferase 46 IU/L (14-36); BUN Creatinine Ratio 17.5 (6-22); Bilirubin Total 0.4 mg/dL (0.2-1.3); Blood Urea Nitrogen 10 mg/dL (7-17); Calcium 8.8 mg/dL (8.4-10.2); Carbon Dioxide 18 mmol/L (22-32); Chloride 104 mmol/L (98-107); Estimated Glomerular Filt Rate > 60 mL/min (>60); Globulin 3.1 g/dL (1.7-4.1); Glucose 132 mg/dL (70-100); HEMOLYSIS < 15 (0-50); Potassium 3.6 mmol/L (3.4-5.1); Sodium 131 mmol/L (137-145); Total Protein 7.2 g/dL (6.3-8.2)
[2024-12-03 05:58] LABS: Procalcitonin 0.434 ng/mL (<0.5)
[2024-12-03] MEDS: LORazepam 2 MG/ML INJ 0.5 MG IV (06:18)
--- NOTE | 2024-12-03 06:18 | PC.NURSE ---
Pt's heart rate dipping down into the 40's bpm. Dr. Lou aware, new order to place pt on telemetry.
[2024-12-03] MEDS: diazePAM 5 MG TABLET PO (09:17)
[2024-12-03] MEDS: HYDROMORPHONE 0.5 MG INJ IV ×4 (09:20→22:28)
--- NOTE | 2024-12-03 09:23 | PC.NURSE ---
Assumed cares from DARRIAN Medeiros. Pt will wake to voice and touch. Reports BRICEÑO pain 05/28. Medicated with PRN for pain. Pt is calm and cooperative with cares. Answers questions with frequent stimulation.
--- NOTE | 2024-12-03 09:50 | PC.NURSE ---
Pt transferred to MRI via [place]. Appears comfortable. Laying back in [place], eyes closed.
--- NOTE | 2024-12-03 12:11 | DI.MRI.S_ITS ---
PROCEDURE: MR HEAD/BRAIN WO/W CON INDICATIONS: Lower extremity progressive weakness TECHNIQUE: Noncontrast axial T1 spin echo, axial T2 fast spin echo, sagittal and axial FLAIR, coronal T2 fast spin echo, axial gradient echo, axial diffusion and ADC through the brain. After the administration of contrast, axial and coronal and sagittal 3D VIBE or T1 spin echo with fat saturation through the brain. COMPARISON: CT, CT HEAD/BRAIN WO CON, 01/26/2019, 20:45. [facility], CT, CT HEAD/BRAIN WO CON, 12/02/2024, 20:27. FINDINGS: Image quality: Excellent. CSF Spaces: Basal cisterns are patent. No extra-axial fluid collections. Ventricles are normal in size and shape. Brain: No midline shift. No intracranial bleeds or masses. No abnormal intracranial enhancement. The brainstem appears normal. Diffusion-weighted images demonstrate no acute infarct. No chronic ischemic insults. Normal intravascular flow voids are present. Skull and face: Calvarial marrow is normal in signal. Orbits appear normal. Sinuses: Sinuses and mastoids appear clear. IMPRESSION: 1. No acute intracranial process. Dictated by: Saranya Foster M.D. on 12/03/2024 at 15:37 Approved by: Saranya Foster M.D. on 12/03/2024 at 15:41
--- NOTE | 2024-12-03 14:20 | PC.NURSE ---
Assisted with LP with Dr Suarez. Pt calm and cooperative. Pt able to answer questions appropriately. Moved pt to sitting position with some assistance. tolerated procedure well. Pt to MRI via [facility].
--- NOTE | 2024-12-03 14:41 | DI.MRI.S_ITS ---
PROCEDURE: MR CERVICAL SPINE WO/W CON INDICATIONS: Progressive bilateral lower extremity weakness TECHNIQUE: Noncontrast sagittal T1 spin echo and T2 fast spin echo, sagittal STIR, foraminal oblique sagittal T2 fast spin echo, axial gradient echo or T2 fast spin echo through the cervical spine. After the administration of contrast, axial and sagittal T1 spin echo with fat saturation through the cervical spine. COMPARISON: None. FINDINGS: Image quality: Excellent. Alignment and curvature: There is reversal cervical curvature is present C5-6. Marrow: Marrow is normal in overall signal, without suspicious enhancement. Spinal cord: Visualized spinal cord has normal size and signal. No cerebellar tonsillar herniation. No abnormal intramedullary enhancement. Paraspinous soft tissues: No paravertebral masses or suspicious enhancement. C2-3: No disc bulge, spinal stenosis or foraminal narrowing. C3-4: Mild disc bulge stenosis. Minimal bilateral foraminal narrowing. C4-5: Mild disc bulge with effacement the anterior thecal sac.. C5-6: Mild disc bulge with rzfu-rw-dsovzyev spinal stenosis. Moderate bilateral narrowing with uncovertebral hypertrophy. C6-7: Mild disc bulge with moderate spinal stenosis. Moderate bilateral foraminal narrowing with uncovertebral hypertrophy. C7-T1: No disc bulge, spinal stenosis or foraminal narrowing. IMPRESSION: Degenerative changes most prominent C5-6 and C6-7. Dictated by: Saranya Foster M.D. on 12/03/2024 at 15:41 Approved by: Saranya Foster M.D. on 12/03/2024 at 15:45
[2024-12-03 14:44] LABS: CSF Tube Number 3; CSF Tube Volume 1.25 mL
[2024-12-03 14:45] LABS: Appearance CSF Clear (Clear); Color CSF Colorless (Colorless)
[2024-12-03 14:56] LABS: Glucose CSF 33 mg/dL (40-70)
[2024-12-03 14:58] LABS: Red Blood Cell CSF 622 RBC /uL; White Blood Cell CSF 245 MONO/uL (0-5)
[2024-12-03 14:59] LABS: Total Protein CSF 250 mg/dL (12-60)
[2024-12-03 15:34] LABS: HOLD TUBE CSF 3
[2024-12-03 15:43] LABS: Mononuclear WBC CSF 91 %; Polynuclear WBC CSF 9 %
[2024-12-03 16:33] LABS: Cryptococcus neoformans/gattii Not Detected (Not Detect); Enterovirus Not Detected (Not Detect); Escherichia coli K1 Not Detected (Not Detect); Haemophilus influenzae Not Detected (Not Detect); Herpes simplex virus 1 Not Detected (Not Detect); Herpes simplex virus 2 Detected (Not Detect); Human herpesvirus 6 Not Detected (Not Detect); Human parechovirus Not Detected (Not Detect); Listeria monocytogenes Not Detected (Not Detect); Neisseria meningitidis Not Detected (Not Detect); Streptococcus agalactiae Not Detected (Not Detect); Streptococcus pneumoniae Not Detected (Not Detect); Varicella Zoster Virus Not Detected (Not Detecte)
[2024-12-03] MEDS: WATER IV (17:10)
[2024-12-03] MEDS: DEXTROSE 5% IV (17:10)
[2024-12-03] MEDS: ACYCLOVIR IV (17:10)
--- NOTE | 2024-12-03 19:11 | PC.NURSE ---
Pt wakes to voice. MD in room with pt. Understands plan of care. Water given to pt.
[2024-12-04] VITALS (33 sets, daily range): BP systolic 100–131; BP diastolic 60–88; PULSE 54–104; RESP 13–28; TEMP 36.1–36.7; O2SAT 95–99; BMI 24.9
[2024-12-04] MEDS: WATER IV ×3 (02:10→16:21)
[2024-12-04] MEDS: ACYCLOVIR IV ×3 (02:10→16:21)
[2024-12-04] MEDS: DEXTROSE 5% IV ×3 (02:10→16:21)
--- NOTE | 2024-12-04 05:12 | PC.NURSE ---
Pt sleeping intermittently most of shift. For the last 3 hours sleeping without interruption. Ro catheter intact free of kinks, draining well.
[2024-12-04] MEDS: VANCOMYCIN 1,000 MG in SODIUM CHLORIDE 0.9% 250 ML 250 MG IV (07:29)
[2024-12-04 08:28] LABS: Add Manual Diff / Slide Review NO; Basophils Absolute Auto 0 /uL (0-100); Basophils Percent Auto 0.5 % (0-2); Eosinophils Absolute Auto 0 /uL (0-450); Eosinophils Percent Auto 0.4 % (2-4); Hematocrit 40.8 % (36-46); Lymphocytes Absolute Auto 2200 /uL (1100-4500); Lymphocytes Percent Auto 24.2 % (25-40); Mean Corpuscular HGB Conc 34.3 % (30-36); Mean Corpuscular Hemoglobin 30.9 PG (26-34); Mean Corpuscular Volume 90.1 fL (80-100); Monocytes Absolute Auto 1700 /uL (0-900); Monocytes Percent Auto 18.5 % (3-14); Neutrophils Absolute Auto 5000 /uL (1500-7000); Neutrophils Percent Auto 56.4 % (50-75); Platelet Count 450 X10^3/uL (150-400); Red Blood Cell Count 4.53 X10^6/uL (4.0-5.2); Red Cell Distribution Width 13.7 % (11.6-14.8); White Blood Cell Count 8.9 X10^3/uL (4.5-11.0)
[2024-12-04] MEDS: ACETAMINOPHEN 325 MG TABLET 975 MG PO ×2 (08:50→16:09)
[2024-12-04 08:51] LABS: Alanine Aminotransferase 36 IU/L (<35); Albumin 3.6 g/dL (3.5-5.0); Albumin Globulin Ratio 1.2 (1.0-2.8); Alkaline Phosphatase 90 U/L (38-126); Aspartate Aminotransferase 38 IU/L (14-36); BUN Creatinine Ratio 17.9 (6-22); Bilirubin Total 0.2 mg/dL (0.2-1.3); Blood Urea Nitrogen 12 mg/dL (7-17); Calcium 8.5 mg/dL (8.4-10.2); Carbon Dioxide 25 mmol/L (22-32); Chloride 103 mmol/L (98-107); Estimated Glomerular Filt Rate > 60 mL/min (>60); Glucose 104 mg/dL (70-100); HEMOLYSIS < 15 (0-50); Potassium 3.7 mmol/L (3.4-5.1); Sodium 132 mmol/L (137-145); Total Protein 6.6 g/dL (6.3-8.2)
[2024-12-04] MEDS: ENOXAPARIN 40 MG/0.4 ML SYRINGE SUBCUT (08:51)
[2024-12-04] MEDS: cefTRIAXone 2,000 MG in SODIUM CHLORIDE 0.9% 100 ML 200 MG IV (10:37)
--- NOTE | 2024-12-04 12:42 | P.HP_ITS ---
History of Present Illness History of Present Illness Date Patient Seen: 12/04/24 Time Patient Seen: 12:42 Chief complaint: thinks blood clot, shakey, headache Narrative: This is a 43 year old female with a history of Methamphetamine Use, regular alcohol use, hyperlipidemia and hypothyroidism who presented to the ED on 12/02/2024. Her presenting symptom was 3 days of burning in her legs and pain in her arms followed by 3 days of being unable to walk with her legs collapsing when she stood up. She also experienced a headache for 2 days. She was febrile to 99.1 at home. She underwent extensive workup including MRI scan of her spinal levels and her brain. No explanatory abnormality was found. Her initial laboratory testing demonstrated a Gram-negative kaykay UTI but no other significant hematologic abnormality. The ED physicians spoke with multiple ID, Neurology and Neurosurgery physicians seeking to transfer her to a neurology staffed hospital without succeeding at finding any beds. The lumbar puncture CSF testing showed significant elevated levels of protein and the PCRwas positive for HSV 2. There was some concern about coverage for listeria but that CSF test was negative. She was on vancomycin and ceftriaxone for most of the last 2 days but does not have any appropriate target symptoms as the HSV encephalitis appears to adequately explain her lower extremity symptoms. For the UTI she will be continued on oral antibiotics. She says she is feeling somewhat stronger since the IV Acyclovir was started but remains with significant weakness more in the legs than the arms. She denies any history of herpes. 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 Her urine drug screen is positive for amphetamines, methamphetamines, MDMA and marijuana. She also admits to regular alcohol use. [facility]LY [facility] Medical History (Updated 12/04/24 @ 13:00 by Cristiane Morrison MD) Hyperlipidemia Hypothyroid Alcohol abuse Methamphetamine abuse Healthy adult Surgical History (Updated 12/04/24 @ 12:44 by Cristiane Morriosn MD) H/O section Family History Father No problems noted. Mother No problems noted. Social History Smoking Status: Current every day smoker Meds Home Medications and Allergies Home Medications Medication Instructions Recorded Confirmed Type atorvastatin 40 mg tablet 40 mg PO QPM 12/02/24 12/02/24 History levothyroxine 150 mcg tablet 150 mcg PO DAILY 12/02/24 12/02/24 History Allergies Allergy/AdvReac Type Severity Reaction Status Date / Time No Known Drug Allergies Allergy Verified 12/02/24 18:01 Review of Systems Review of Systems Narrative: Positive for headache, bilateral lower extremity weakness and bilateral upper extremity pain. Negative for chills, sweats, chest pain, shortness breast, nausea, vomiting, coughing, abdominal pain, dysuria, rashes, joint pain, new allergies, sore throat. Exam Vital Signs (past 8 hours): - 12/04/24 05:00 12/04/24 05:00 12/04/24 05:30 Pulse Rate 80 80 Respiratory Rate 16 18 Blood Pressure 118/75 Pulse Oximetry 97 96 Oxygen Delivery Method Room Air Room Air 12/04/24 06:00 12/04/24 06:00 12/04/24 06:30 Pulse Rate 78 66 Respiratory Rate 17 21 Blood Pressure 122/73 Pulse Oximetry 97 96 Oxygen Delivery Method 12/04/24 06:51 12/04/24 06:51 12/04/24 07:00 Pulse Rate 75 Respiratory Rate 16 Blood Pressure 114/88 127/82 Pulse Oximetry 98 Oxygen Delivery Method 12/04/24 07:00 12/04/24 07:30 12/04/24 08:00 Pulse Rate 71 76 Respiratory Rate 17 16 Blood Pressure 128/83 Pulse Oximetry 95 97 Oxygen Delivery Method Room Air 12/04/24 08:00 12/04/24 08:30 12/04/24 09:00 Pulse Rate 73 65 73 Respiratory Rate 16 28 H 19 Blood Pressure Pulse Oximetry 98 97 98 Oxygen Delivery Method Room Air 12/04/24 09:02 12/04/24 09:02 12/04/24 09:30 Pulse Rate 82 63 Respiratory Rate 28 H 14 Blood Pressure 119/77 Pulse Oximetry 98 99 Oxygen Delivery Method Room Air 12/04/24 10:00 12/04/24 10:01 12/04/24 10:01 Pulse Rate 78 71 Respiratory Rate 20 14 Blood Pressure 126/65 Pulse Oximetry 97 98 Oxygen Delivery Method 12/04/24 10:30 12/04/24 11:00 12/04/24 11:00 Pulse Rate 74 81 Respiratory Rate 17 Blood Pressure 111/61 Pulse Oximetry 95 97 Oxygen Delivery Method Room Air Room Air 12/04/24 11:30 12/04/24 12:00 12/04/24 12:01 Pulse Rate 71 99 H Respiratory Rate 18 24 Blood Pressure 100/74 Pulse Oximetry 98 96 Oxygen Delivery Method Room Air Room Air Oxygen Delivery Method Room Air Narrative Exam Narrative: She is alert and oriented x3. She has in no apparent distress. She is an accurate and detailed historian. Pupils are equally round and reactive to light and accommodation. Extraocular muscles are intact. Sclerae are pink and nonicteric Throat looks normal No lymph nodes are felt head, neck, supraclavicular area. There is no thyromegaly There is no JVD No carotid bruits are heard Heart is regular rate and rhythm without murmur Lungs are clear to auscultation bilaterally Abdomen is soft, bowel sounds positive, nontender, no organomegaly Extremities have no ankle edema. There is no joint swelling. Skin has no rash or jaundice. Neurologic exam: Motor function is notable for bilateral 2/5 proximal lower extremity strength and 3/5 distal lower extremity strength. Bilateral upper extremity strength is 4/5. There is no tremor Cranial nerves 2-12 test intact There is no dysmetria. Reflexes are hypoactive Sensation is grossly intact Objective Imaging MRI - head: Radiologist's impression: PROCEDURE: MR HEAD/BRAIN WO/W CON INDICATIONS: Lower extremity progressive weakness TECHNIQUE: Noncontrast axial T1 spin echo, axial T2 fast spin echo, sagittal and axial FLAIR, coronal T2 fast spin echo, axial gradient echo, axial diffusion and ADC through the brain. After the administration of contrast, axial and coronal and sagittal 3D VIBE or T1 spin echo with fat saturation through the brain. COMPARISON: CT, CT HEAD/BRAIN WO CON, 01/26/2019, 20:45. [facility], CT, CT HEAD/BRAIN WO CON, 12/02/2024, 20:27. FINDINGS: Image quality: Excellent. CSF Spaces: Basal cisterns are patent. No extra-axial fluid collections. Ventricles are normal in size and shape. Brain: No midline shift. No intracranial bleeds or masses. No abnormal intracranial enhancement. The brainstem appears normal. Diffusion-weighted images demonstrate no acute infarct. No chronic ischemic insults. Normal intravascular flow voids are present. Skull and face: Calvarial marrow is normal in signal. Orbits appear normal. Sinuses: Sinuses and mastoids appear clear. IMPRESSION: 1. No acute intracranial process. MRI - lumbar: Radiologist's impression: PROCEDURE: MR LUMBAR SPINE WO/W CON INDICATIONS: weakness, legs, back pain TECHNIQUE: Noncontrast sagittal T1 spin echo and T2 fast spin echo, sagittal STIR, axial T1 and T2 fast spin echo through the lumbar spine. In cases with scoliosis, additional coronal T2 fast spin echo may be performed. After the administration of contrast, sagittal and axial T1 spin echo with fat saturation through the lumbar spine. COMPARISON: [facility], CT, CT LUMBAR SPINE W CON, 12/02/2024, 20:27. [facility], CT, CT HEAD/BRAIN WO CON, 12/02/2024, 20:27. FINDINGS: Image quality: Excellent. Alignment and curvature: There is normal bony alignment. Marrow: Marrow is of normal overall signal. No acute vertebral body compression fractures. No suspicious marrow enhancement. Partial sacralization of L5 is seen. No abnormal intraosseous enhancement. Spinal cord: Conus medullaris terminates at the L1 level. Visualized spinal cord demonstrates normal signal, without suspicious enhancement. Paraspinous soft tissues: No paravertebral masses or abnormal enhancement. T12-L1: Normal appearance. L1-L2: Normal appearance. L2-L3: Normal appearance. L3-L4: There is disc desiccation and loss of disc height. Broad-based disc bulge and bilateral facet arthrosis with mild hypertrophy of ligamentum flavum is seen causing mild central canal stenosis, moderate to severe right-sided neural foraminal narrowing and mild left-sided neural foraminal narrowing. Bulging disc likely contacting right L3 nerve root. L4-L5: Disc desiccation is seen. Broad-based disc bulge and bilateral facet arthrosis with mild to moderate bilateral neural foraminal narrowing. No significant central canal stenosis. L5-S1: Normal appearance. IMPRESSION: 1. Partial sacralization of L5. No marrow edema. No acute compression fracture or spondylolisthesis. No marrow edema. No abnormal intraosseous enhancement. 2. Degenerative disc bulge at L3-4 and L4-5 levels causing various degrees of central canal stenosis and bilateral neural foraminal narrowing as described above. 3. No area of abnormal enhancement is seen within the spinal canal. No paraspinous soft tissue abnormalities or abnormal enhancement. Labs 12/04/24 08:22 12/04/24 08:22 Labs: Laboratory Results - last 24 hr 12/03/24 12/03/24 12/04/24 14:25 14:28 08:22 WBC 8.9 RBC 4.53 Hgb 14.0 Hct 40.8 MCV 90.1 MCH 30.9 MCHC 34.3 RDW 13.7 Plt Count 450 H Neut % (Auto) 56.4 D Lymph % (Auto) 24.2 L [place] % (Auto) 18.5 H Eos % (Auto) 0.4 L Baso % (Auto) 0.5 Neut # (Auto) 5000 Lymph # (Auto) 2200 [place] # (Auto) 1700 H Eos # (Auto) 0 Baso # (Auto) 0 Sodium 132 L Potassium 3.7 Chloride 103 Carbon Dioxide 25 BUN 12 Creatinine 0.67 Estimated GFR > 60 BUN/Creatinine Ratio 17.9 Glucose 104 H Calcium 8.5 Total Bilirubin 0.2 AST 38 H ALT 36 H Alkaline Phosphatase 90 Total Protein 6.6 Albumin 3.6 Globulin 3.0 Albumin/Globulin Ratio 1.2 CSF Tube Number 3 CSF Volume 1.25 ml CSF Appearance Clear CSF Color Colorless CSF WBC 245 H CSF RBC 622 CSF Mononuclear WBCs 91 CSF Polynuclear WBCs 9 CSF Glucose 33 L CSF Total Protein 250 H* CSF C.neoform/gat PCR Not detected CSF CMV DNA (PCR) Not detected CSF Enterovirus (PCR) Not detected CSF E. coli (PCR) Not detected CSF H. influenzae (PCR) Not detected CSF HSV I (PCR) Not detected CSF HSV II (PCR) Detected CSF HHV 6 (PCR) Not detected CSF L.monocytogenes PCR Not detected CSF N. meningitidis PCR Not detected CSF Parechovirus (PCR) Not detected CSF S. agalactiae (PCR) Not detected CSF S. pneumoniae (PCR) Not detected CSF VZV (PCR) Not detected Assessment & Plan Assessment & Plan narrative: This is a 43 year old female with a history of Methamphetamine Use, regular alcohol use, hyperlipidemia and hypothyroidism who presented to the ED on 12/02/2024. Her presenting symptom was 3 days of burning in her legs and pain in her arms followed by 3 days of being unable to walk with her legs collapsing when she stood up. She also experienced a headache for 2 days. 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 Also negative for listeria -continue acyclovir high-dose IV per ID. -no additional symptoms to suggest bacterial infection so the vanco and ceftriaxone will be discontinued. -treatment discussed with several different ID doctors per ED documentation. -above workup discussed with Neurology and Neurosurgery extensively from the ED. No facility with Neurology staffing could be found for her to be transferred to. -no indication for steroids. 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 -patient reports improving symptoms since acyclovir was started. -total duration of treatment to be determined Hypothyroidism -continue levothyroxine -TSH 3.30 Hyperlipidemia -continue atorvastatin Lovenox for DVT prevention Time-Based Coding :: [TOTAL MINUTES] spent with patient and on the chart (including review of chart, obtaining history, exam, reviewing outside data, placing orders, documenting exam and treatment plan, and counseling patient) on [DATE].
[2024-12-04] MEDS: SODIUM CHLORIDE 0.9% 1,000 ML 70 ML IV (12:55)
--- NOTE | 2024-12-04 15:49 | PC.NURSE ---
Received pt from ED at 1235. Pt alert and oriented. Jia is patent. Pt oriented to room, and how to use call light. Pt will be transferring to [place] at 1730. This RN called and gave report to DARRIAN Irizarry.
[2024-12-04] MEDS: ATORVASTATIN 20 MG TABLET 40 MG PO (17:24)
[2024-12-05 02:12] LABS: RPR Screen Non Reactive (Non Reactive)
== END 2024-12-04 18:46 | disposition short-term general hospital (02) | DRG 50 ==
LOC: ED 12-04 11:50 → AC 12-04 11:50
PROVIDERS: Emergency Medicine; Admitting Provider Family Medicine; Emergency Provider Emergency Medicine; Referring Provider Emergency Medicine; Visit Provider Family Medicine
DX: B10.09 Other human herpesvirus encephalitis (principal); E03.9 Hypothyroidism, unspecified; E78.5 Hyperlipidemia, unspecified; F15.90 Other stimulant use, unspecified, uncomplicated; F17.210 Nicotine dependence, cigarettes, uncomplicated
CPT/HCPCS: 0241U; 36415; 51798; 62270; 70450; 70553; 72132; 72156; 72157; 72158; 80053; 80305; 81001; 82550; 82945; 82962; 83605; 83690; 84145; 84157; 84443; 84703; 85025; 85379; 85651; 86140; 86592; 87040; 87070; 87077; 87086; 87186; 87205; 87798; 87899; 89051; 93005; 93010; 96365; 96366; 96367; 96372; 96375; 96376; 99285; 99291; 99292; A9579; J0696; J1171; J1630; J1650; J1885; J2060; J2270; Q9967